=== PATIENT | male | born 1995 ===

== ENCOUNTER 2020-08-01 12:17 | Outpatient (REF) | payer OTHER, SELFPAY ==
[2020-08-01 13:51] LABS: TSH reflex Free T4 0.36 mIU/mL (0.32-4.0)
[2020-08-01 13:53] LABS: Alanine Aminotransferase 31 U/L (0-40); Albumin Level 4.5 g/dL (3.5-5.0); Alkaline Phosphatase 77 U/L (39-117); Anion Gap 11 (12-20); Aspartate Amino Transferase 31 U/L (5-37); Bilirubin Total 0.3 mg/dL (0.0-1.0); Blood Urea Nitrogen 27 mg/dL (9-16); Calcium 8.6 mg/dL (8.4-10.2); Carbon Dioxide 27 mmol/L (22-29); Chloride 104 mmol/L (96-108); Estimated Glomerular Filt Rate > 60; Glucose Fasting 83 mg/dL (60-99); Potassium 4.3 mmol/l (3.3-5.1); Sodium 138 mmol/L (135-145); Total Protein 7.5 g/dL (6.5-8.0)
[2020-08-01 17:57] LABS: Estimated Average Glucose 103 mg/dL; Hemoglobin A1c % 5.2 %
[2020-08-02 04:01] LABS: Syphilis Screen Nonreactive (Nonreactive)
[2020-08-02 04:32] LABS: HBS Num1 0.94 mIU/mL (0-7.99); HBc Num1 0.05 S/CO (0.00-0.79); Hepatitis B Core Antibody Nonreactive (Nonreactive); ~HepC Num1 0.08 S/CO (0.00-0.79); ~Hepatitis B Surface Antibody NONREACTIVE (Nonreactive); ~Hepatitis C Antibody Nonreactive (Nonreactive)
[2020-08-02 04:37] LABS: HIV AB/AG Nonreactive (Nonreactive); HIV Num 1 0.13 S/CO (0.00-0.99); Hepatitis B Surface Antigen Negative (Negative)
== END 2020-08-01 12:18 | disposition home or self-care (01) ==
LOC: HO.LAB 12:17
PROVIDERS: Visit Provider Physician Assistant
DX: Z13.1 Encounter for screening for diabetes mellitus (principal); Z11.3 Encounter for screening for infections with a predominantly sexual mode of transmission; Z13.29 Encounter for screening for other suspected endocrine disorder
CPT/HCPCS: 80053; 83036; 84443; 86704; 86706; 86780; 86803; 87340; 87389

== ENCOUNTER 2020-12-27 10:27 | Outpatient (REF) | payer OTHER, SELFPAY ==
[2020-12-27 12:10] LABS: HBsAGNum1 0.19 S/CO (0.00-0.99); HIV AB/AG Nonreactive (Nonreactive); HIV Num 1 0.06 S/CO (0.00-0.99); Hepatitis B Surface Antigen Negative (Negative)
[2020-12-27 12:21] LABS: Syphilis Screen Nonreactive (Nonreactive)
[2020-12-27 12:22] LABS: HBS Num1 0.44 mIU/mL (0-7.99); HBc Num1 0.06 S/CO (0.00-0.79); Hepatitis A Antibody IgM 0.12 Index (0-0.79); Hepatitis B Core Antibody Nonreactive (Nonreactive); ~HepC Num1 0.17 S/CO (0.00-0.79); ~Hepatitis A Antibody IgM Nonreactive (Nonreactive); ~Hepatitis B Surface Antibody NONREACTIVE (Nonreactive); ~Hepatitis C Antibody Nonreactive (Nonreactive)
[2020-12-28 04:06] LABS: CT PCR NOT DETECTED (Not Detect.); NG PCR NOT DETECTED (Not Detect.)
[2021-01-03 14:16] LABS: HSV 1 IgM IFA Negative (Negative); HSV 2 IgM IFA Negative (Negative)
== END 2020-12-27 10:28 | disposition home or self-care (01) ==
LOC: HO.HMGCLDS 10:27
PROVIDERS: PCP Physician Assistant; Visit Provider Hospitalist
DX: Z11.3 Encounter for screening for infections with a predominantly sexual mode of transmission (principal)
CPT/HCPCS: 36415; 86695; 86696; 86704; 86706; 86709; 86780; 86803; 87340; 87389; 87491; 87591

== ENCOUNTER 2021-03-14 12:33 | Outpatient (REF) | payer OTHER, SELFPAY ==
[2021-03-14 13:50] LABS: Hematocrit 42.8 % (42-52); Hemoglobin 13.7 g/dl (14.0-18.0); Mean Corpuscular Hemoglobin 25.7 pg (27.0-33.0); Mean Corpuscular Volume 80.1 fL (80-98); Mean Platelet Volume 10.8 fL (9.4-12.4); Platelet Count 187 X10*3/uL (160-400); Red Blood Count 5.34 X10*6/uL (4.60-5.80); Red Cell Distribution Width 13.3 % (11.0-16.0); White Blood Count 6.9 X10*3/uL (4.8-10.8)
[2021-03-14 14:05] LABS: Alanine Aminotransferase 20 U/L (0-40); Albumin Level 4.8 g/dL (3.5-5.0); Alkaline Phosphatase 68 U/L (39-117); Anion Gap 11 (12-20); Aspartate Amino Transferase 18 U/L (5-37); Bilirubin Direct 0.3 mg/dL (0.0-0.5); Blood Urea Nitrogen 13 mg/dL (9-16); Calcium 10.1 mg/dL (8.4-10.2); Carbon Dioxide 28 mmol/L (22-29); Chloride 104 mmol/L (96-108); Estimated Glomerular Filt Rate > 60; Glucose Random 99 mg/dL (60-115); Potassium 4.4 mmol/L (3.3-5.1); Sodium 139 mmol/L (135-145); Total Protein 7.8 g/dL (6.5-8.0)
[2021-03-14 14:41] LABS: Erythrocyte Sedimentation Rate 4 MM/HR (0-15)
== END 2021-03-14 12:34 | disposition home or self-care (01) ==
LOC: HO.LAB 12:33
PROVIDERS: PCP Physician Assistant; Visit Provider Physician Assistant
DX: I10 Essential (primary) hypertension (principal); Z87.39 Personal history of other diseases of the musculoskeletal system and connective tissue
CPT/HCPCS: 36415; 80048; 80076; 82550; 85027; 85652

== ENCOUNTER 2021-08-24 16:55 | Emergency (ER) | payer OTHER, SELFPAY ==
[2021-08-24 19:48] VITALS: BP 126/74; PULSE 60; RESP 18; TEMP 36.4; O2SAT 97; BMI 24.7
--- NOTE | 2021-08-24 19:58 | ED.MALEGU ---
HPI - Male Genitourinary General Chief complaint: Urogenital-Male Stated complaint: STD check Source: patient Mode of arrival: ambulatory Limitations: no limitations History of Present Illness HPI Narrative: 25-year-old male presents with penile discharge with suspected sexual transmitted infection. MD Complaint: penile discharge Onset (ago): day(s) (4) Duration: intermittent Location: penis Severity: moderate Severity scale (1-10): 5 Quality: burning Relieving factors: none Exacerbating factors: urination Context: new sexual partner Associated symptoms: Reports discharge Related Data Sexually active: Yes Previous Rx's Medication Instructions Recorded sildenafil 50 mg tablet 50 mg PO DAILY PRN 4 Days #4 tab 06/10/21 Allergies Allergy/AdvReac Type Severity Reaction Status Date / Time pollen extracts [POLLEN] Allergy Unknown UNKNOWN Verified 08/24/21 19:47 Review of Systems Review of Systems: Constitutional: No Fever, No Chills ENT/Mouth: No Ear Pain, No Hoarseness, No sore throat Eyes: No Eye Pain, No Swelling, No Redness, No Foreign Body Cardiovascular: No Chest Pain, No SOB Respiratory: No Cough, No Dyspnea Gastrointestinal: No Nausea, No Vomiting, No Diarrhea, No abdominal Pain Genitourinary: Positive penile discharge, No Dysuria, No Hematuria Musculoskeletal: no joint pain, No Myalgias, No Joint Swelling Skin: No Skin lacerations, No rash Neuro: No Weakness, No Numbness, No Paresthesias, No Loss of Consciousness, No Dizziness, No Headache Psych: No Anxiety/Panic, No Depression Heme/Lymph: no easy bruising, no Lymphadenopathy Endocrine: No Polyuria, No Polydipsia Yes all other systems are reviewed and are negative [facility] Past Medical History Attestation statement: The following information was validated with the patient. Source: old records reviewed Medical History MDD (major depressive disorder), recurrent episode, moderate Surgical History No history of previous surgery Family History Family History Father No problems noted. Mother Asthma Breast cancer Substance abuse Other Mental problem Social History Social History Housing: Apartment Alcohol intake: current Alcohol intake frequency: holidays/special occasions only Alcohol type: wine Patient Tobacco Use Status: Former Tobacco user e-Cigarette/Vaping Use: Never Used Second Hand Smoke Exposure: Yes Substance Use Type: Hallucinogens and Marijuana Advance Directives: No service: No Current occupational status: unemployed Physical Exam Vital Signs: Vital Signs: Last Vital Signs Temp 97.5 F 08/24/21 19:48 Pulse 60 08/24/21 19:48 Resp 18 08/24/21 19:48 BP 126/74 08/24/21 19:48 Pulse Ox 97 08/24/21 19:48 Body Mass Index 24.7 Appearance: Alert. Oriented X3. No acute distress. Eyes: Pupils equal, round and reactive to light. ENT: Pharynx normal. Neck: Normal inspection. Neck supple. CVS: Normal heart rate and rhythm. Pulses normal. Respiratory: No respiratory distress. Breath sounds normal. Abdomen: Soft and nontender. : Pearly penile discharge noted, no testicular pain or tenderness noted. Skin: Skin warm and dry. Normal skin color. Normal skin turgor. Extremities: No inguinal adenopathy. Moves all extremities against resistance. Gait Well-balanced well coordinated. Neuro: No motor deficit. No sensory deficit. Cranial nerves 2-12 intact. Course Course Course Narrative: 25-year-old male presents with penile discharge after new partner. Denies testicular pain and hematuria will treat with azithromycin and ceftriaxone. Patient will notify partners. Patient verbalized understanding of and agrees plan of care discharge home. MDM - Male Genitourinary MDM Narrative Medical decision making narrative: Chlamydia, gonorrhea Differential Diagnosis Differential diagnosis: Likely urinary tract infection, urethritis and epididymitis Medical Records Attestation: I reviewed the patient's medical records. Lab Data Attestation: I reviewed the patient's lab results. Labs: Lab Results 08/24/21 Range/Units 20:12 Urine Color YELLOW Urine Appearance CLEAR Urine pH 6.0 (5.0-8.0) Ur Specific [place] >= 1.030 H (1.005-1.025) Urine Protein NEG (NEG-TRACE) MG/DL Urine Glucose (UA) NEG (NEG) MG/DL Urine Ketones NEG (NEG) MG/DL Urine Blood NEG (NEG) Urine Nitrite NEG (NEG) Ur Leukocyte Esterase NEG (NEG) Discharge Plan Discharge Clinical Impression: Sexually transmitted disease Patient Disposition: Home, Self-Care Instructions: Sexually Transmitted Diseases (ED), Male Condom Use (ED) Additional Instructions: we treated you for chlamydia and gonorrhea. Please notify Your partners. Your test results are pending. Thank you for choosing this emergency department for evaluation. Please follow-up with primary care physician as needed. Return to the emergency department for any new, concerning, or worsening symptoms. Prescriptions: No Action sildenafil 50 mg tablet 50 mg PO DAILY PRN (Reason: sexual activity) 4 Days Qty: 4 RF: 0 Interventions: ED Discharge Assessment Last Done: 08/24/21 20:51 Discharge Date/Time: 08/24/21 20:53
[2021-08-24 20:28] LABS: Appearance Urine CLEAR; Color Urine YELLOW; Glucose Urine UA NEG (NEG); Leukocyte Esterase Urine NEG (NEG); Nitrite Urine NEG (NEG); Specific Gravity - Urine >= 1.030 (1.005-1.025); Urine Blood NEG (NEG); Urine Ketones NEG (NEG); Urine Protein NEG (NEG-TRACE)
[2021-08-24] MEDS: cefTRIAXone sodium 500 MG, Lidocaine HCl 1 % MPF 1 ML IM (20:47)
[2021-08-24] MEDS: Azithromycin 500 MG TABLET 1000 MG PO (20:47)
[2021-08-25 00:54] LABS: CT PCR NOT DETECTED (Not Detect.); NG PCR DETECTED (Not Detect.)
== END 2021-08-24 20:53 | disposition home or self-care (01) ==
PROVIDERS: Nurse Practitioner Family; Emergency Provider Internal Medicine; PCP Physician Assistant
DX: A54.09 Other gonococcal infection of lower genitourinary tract (principal)
CPT/HCPCS: 81003; 87491; 87591; 96372; 99283; 99284; J0696

== ENCOUNTER 2021-09-05 04:51 | Emergency (ER) | payer OTHER, SELFPAY ==
[2021-09-05 04:53] VITALS: BP 117/68; PULSE 84; RESP 18; TEMP 36.5; O2SAT 98; BMI 24.2
[2021-09-05 06:18] VITALS: BP 102/52; PULSE 55; RESP 18; TEMP 36.6; O2SAT 96
--- NOTE | 2021-09-05 06:47 | ED.MALEGU ---
HPI - Male Genitourinary General Chief complaint: Urogenital-Male Stated complaint: uro genital male Time Seen by Provider: 09/05/21 05:00 Source: patient Mode of arrival: ambulatory History of Present Illness HPI Narrative: 25-year-old male who was diagnosed with gonorrhea infection on 08/24 and appropriately treated now presents with concerns regarding feeling similar symptoms with burning and itching at the tip of his penis. He denies any scrotal/testicular pain, fevers or chills. Patient states that he has had protected sex on 09/02/2012. Related Data Previous Rx's Medication Instructions Recorded sildenafil 50 mg tablet 50 mg PO DAILY PRN 4 Days #4 tab 06/10/21 Allergies Allergy/AdvReac Type Severity Reaction Status Date / Time pollen extracts [POLLEN] Allergy Unknown UNKNOWN Verified 08/24/21 19:47 Review of Systems Review of Systems: Pertinent positives and negatives as stated in HPI 10 point review of systems is otherwise negative. PMFSH Past Medical History Source: nursing notes reviewed Medical History MDD (major depressive disorder), recurrent episode, moderate Surgical History No history of previous surgery Family History Family History Father No problems noted. Mother Asthma Breast cancer Substance abuse Other Mental problem Social History Social History Housing: Apartment Alcohol intake: current Alcohol intake frequency: holidays/special occasions only Alcohol type: wine Patient Tobacco Use Status: Former Tobacco user e-Cigarette/Vaping Use: Never Used Second Hand Smoke Exposure: Yes Substance Use Type: Hallucinogens and Marijuana Advance Directives: No Advance Directives Information Provided: Yes service: No Current occupational status: unemployed Physical Exam Vital Signs: Vital Signs: Last Vital Signs Temp 97.9 F 09/05/21 06:18 Pulse 55 09/05/21 06:18 Resp 18 09/05/21 06:18 BP 102/52 L 09/05/21 06:18 Pulse Ox 96 09/05/21 06:18 BMI result Body Mass Index 24.2 VITAL SIGNS: Reviewed. GENERAL: Well developed, well nourished, in no acute distress. HEAD: Normocephalic/atraumatic EYES: PERRLA, EOMI OROPHARYNX: no oral lesions noted, posterior pharynx clear LUNGS: Normal breath sounds.SpO2<96> CARDIOVASCULAR: Regular rate and rhythm without noted murmurs ABDOMEN: Soft, non-tender, non-distended with bowel sounds NEUROLOGIC: Alert and oriented x 4 Course Course Course Narrative: 25-year-old male with history and clinical presentation suggestive of either failure of treatment or over thinking this situation. Repeat STI analysis is pending and the plan would be that if he is positive again that he would be treated once again with Rocephin [address] S[address] out to [address] Zuluaga Discharge Plan Discharge Clinical Impression: Dysuria Patient Disposition: Still a Patient Instructions: Dysuria (ED) Prescriptions: No Action sildenafil 50 mg tablet 50 mg PO DAILY PRN (Reason: sexual activity) 4 Days Qty: 4 RF: 0 Referrals: Kolton Tang PA-C [Primary Care Provider] - 2 days
[2021-09-05 08:10] LABS: CT PCR NOT DETECTED (Not Detect.); NG PCR NOT DETECTED (Not Detect.)
--- NOTE | 2021-09-05 08:23 | ED.MALEGU ---
HPI - Male Genitourinary General Chief complaint: Urogenital-Male Stated complaint: uro genital male Time Seen by Provider: 09/05/21 05:00 Source: patient Mode of arrival: ambulatory Related Data Previous Rx's Medication Instructions Recorded sildenafil 50 mg tablet 50 mg PO DAILY PRN 4 Days #4 tab 06/10/21 ondansetron HCl 4 mg tablet 4 mg PO Q6H PRN #10 tab 09/09/21 (Zofran) Allergies Allergy/AdvReac Type Severity Reaction Status Date / Time pollen extracts [POLLEN] Allergy Unknown UNKNOWN Verified 10/11/21 14:26 [facility] Past Medical History Medical History MDD (major depressive disorder), recurrent episode, moderate Surgical History No history of previous surgery Family History Family History Father No problems noted. Mother Asthma Breast cancer Substance abuse Other Mental problem Social History Social History Housing: Apartment Alcohol intake: current Alcohol intake frequency: holidays/special occasions only Alcohol type: wine Patient Tobacco Use Status: Former Tobacco user e-Cigarette/Vaping Use: Never Used Second Hand Smoke Exposure: Yes Substance Use Type: Hallucinogens and Marijuana Advance Directives: No Advance Directives Information Provided: No service: No Current occupational status: unemployed Physical Exam Vital Signs: Vital Signs: Last Vital Signs Temp 97.9 F 09/05/21 06:18 Pulse 55 09/05/21 06:18 Resp 18 09/05/21 06:18 BP 102/52 L 09/05/21 06:18 Pulse Ox 96 09/05/21 06:18 BMI result Body Mass Index 24.2 MDM - Male Genitourinary Lab Data Labs: Lab Results 09/05/21 Range/Units 06:24 Chlam trachomat DNA PCR NOT DETECTED (Not Detect.) N.gonorrhoeae DNA (PCR) NOT DETECTED (Not Detect.) Discharge Plan Discharge Clinical Impression: Dysuria Patient Disposition: Still a Patient Instructions: Dysuria (ED) Prescriptions: No Action ondansetron HCl [Zofran] 4 mg tablet 4 mg PO Q6H PRN (Reason: nausea and vomiting) Qty: 10 RF: 0 sildenafil 50 mg tablet 50 mg PO DAILY PRN (Reason: sexual activity) 4 Days Qty: 4 RF: 0 Referrals: Kolton Tang PA-C [Primary Care Provider] - 2 days Interventions: ED Discharge Assessment Last Done: 09/05/21 08:20 Discharge Date/Time: 09/05/21 08:20
== END 2021-09-05 08:20 | disposition still patient (30) ==
PROVIDERS: Student in an Organized Health Care Education/Training Program; Emergency Provider Emergency Medicine; PCP Physician Assistant
DX: R30.0 Dysuria (principal); A54.9 Gonococcal infection, unspecified; Z87.891 Personal history of nicotine dependence; Z79.899 Other long term (current) drug therapy
CPT/HCPCS: 87491; 87591; 99283; 99284

== ENCOUNTER 2021-09-09 10:52 | Emergency (ER) | payer OTHER, SELFPAY ==
[2021-09-09 11:29] VITALS: BP 106/71; PULSE 55; RESP 18; TEMP 36.6; O2SAT 98; BMI 24.2
[2021-09-09 14:28] LABS: MANUAL DIFF FLAG NO
[2021-09-09 14:31] LABS: Basophils Absolute Auto 0.1 X10*3/uL (0.0-0.2); Basophils Percent Auto 0.6 % (0-2); Eosinophils Absolute Auto 0.1 X10*3/uL (0.0-0.4); Eosinophils Percent Auto 1.7 % (0-4); Hemoglobin 14.7 g/dl (14.0-18.0); Imm Gran Abs Auto 0.02 X10*3/uL (0.00-0.03); Imm Gran Pct Auto 0.2 % (0.0-0.4); Lymphocytes Absolute Auto 1.7 X10*3/uL (1.2-4.9); Lymphocytes Percent Auto 19.8 % (20-40); Mean Corpuscular Volume 81.4 fL (80.0-98.0); Mean Platelet Volume 10.4 fL (9.4-12.4); Monocytes Absolute Auto 0.5 X10*3/uL (0.1-1.2); Neutrophils Absolute Auto 6.1 x10*3/uL (2.0-8.3); Neutrophils Percent Auto 71.7 % (45-73); Platelet Count 201 X10*3/uL (160-400); Red Blood Count 5.65 X10*6/uL (4.60-5.80); Red Cell Distribution Width 13.1 % (11.0-16.0); White Blood Count 8.5 X10*3/uL (4.8-10.8)
[2021-09-09 14:44] LABS: Ethanol < 10 mg/dL
[2021-09-09 14:58] LABS: Alanine Aminotransferase 23 U/L (0-40); Albumin Level 4.6 g/dL (3.5-5.0); Alkaline Phosphatase 60 U/L (39-117); Anion Gap 15 (12-20); Aspartate Amino Transferase 30 U/L (5-37); Bilirubin Direct 0.2 mg/dL (0.0-0.5); Bilirubin Total 0.5 mg/dL (0.0-1.0); Blood Urea Nitrogen 12 mg/dL (9-16); Calcium 9.8 mg/dL (8.4-10.2); Carbon Dioxide 20 mmol/L (22-29); Chloride 106 mmol/L (96-108); Creatinine Clr Calc Pharmacy 107.6; Estimated Glomerular Filt Rate > 60; Glucose Random 92 mg/dL (60-115); Lipase 9 U/L (8-78); Potassium 4.1 mmol/L (3.3-5.1); Sodium 137 mmol/L (135-145); Total Protein 7.7 g/dL (6.5-8.0)
--- NOTE | 2021-09-09 15:43 | ED.GENADULT ---
HPI - General Adult General Chief complaint: ETOH/Substance Use Stated complaint: Vomiting Time Seen by Provider: 09/09/21 15:18 Source: patient Mode of arrival: ambulatory Limitations: no limitations History of Present Illness HPI narrative: Patient comes to the emergency room complaining of nausea and feeling hung over after drinking alcohol. Patient denies abdominal pain, just some gastric burning. Patient states that he has been and occasionally vomiting, states that he drank a lot of alcohol over the weekend. At this time, patient only feeling nauseous, no vomiting, no diarrhea, no abdominal pain. Related Data Previous Rx's Medication Instructions Recorded sildenafil 50 mg tablet 50 mg PO DAILY PRN 4 Days #4 tab 06/10/21 ondansetron HCl 4 mg tablet 4 mg PO Q6H PRN #10 tab 09/09/21 (Zofran) Allergies Allergy/AdvReac Type Severity Reaction Status Date / Time pollen extracts [POLLEN] Allergy Unknown UNKNOWN Verified 08/24/21 19:47 Review of Systems Review of Systems: Constitutional : No Weight loss, No Fever, No Chills, No Night Sweats, No Fatigue, No Malaise ENT/Mouth : No Hearing loss, No Ear Pain, No Nasal Congestion, No Sinus Pain, No Hoarseness, No sore throat, No Rhinorrhea, No Swallowing Difficulty Eyes: No Eye Pain, No Swelling, No Redness, No Foreign Body, No Discharge, No Vision Changes Cardiovascular : No Chest Pain, No SOB, No Dyspnea on Exertion, No Orthopnea, No Edema, No Palpitations Respiratory : No Cough, No Sputum, No Wheezing, No Smoke Exposure, No Dyspnea Gastrointestinal : Complaining of nausea and vomiting No Diarrhea, No Constipation, No abdominal Pain, No Hematochezia, No Melena Genitourinary : no irregular bleeding, No Dysuria, No Urinary Frequency, No Hematuria, No Urinary Incontinence, No Urgency, No Flank Pain, No Urinary Flow Changes, No Hesitancy Musculoskeletal : No joint pain, No Myalgias, No Joint Swelling Skin : No Skin Lesions, No rash Neuro : No Weakness, No Numbness, No Paresthesias, No Loss of Consciousness, No Dizziness, No Headache Psych : No Anxiety/Panic, No Depression, No SI/HI/AH/VH, No Social Issues, Heme/Lymph: No Bruising, No Bleeding,No Lymphadenopathy Endocrine : No Polyuria, No Polydipsia, No Temperature Intolerance PMFSH Past Medical History Medical History MDD (major depressive disorder), recurrent episode, moderate Surgical History No history of previous surgery Family History Family History Father No problems noted. Mother Asthma Breast cancer Substance abuse Other Mental problem Social History Social History Housing: Apartment Alcohol intake: current Alcohol intake frequency: holidays/special occasions only Alcohol type: wine Patient Tobacco Use Status: Former Tobacco user e-Cigarette/Vaping Use: Never Used Second Hand Smoke Exposure: Yes Substance Use Type: Hallucinogens and Marijuana Advance Directives: No Advance Directives Information Provided: No service: No Current occupational status: unemployed Physical Exam Vital Signs: Vital Signs: Last Vital Signs Temp 97.8 F 09/09/21 11:29 Pulse 55 09/09/21 11:29 Resp 18 09/09/21 11:29 BP 106/71 09/09/21 11:29 Pulse Ox 98 09/09/21 11:29 BMI result Body Mass Index 24.2 Const: Other: Appearance: Alert. Oriented X3. No acute distress. Well-appearing Eyes: Pupils equal, round and reactive to light. ENT: Pharynx normal. Neck: Normal inspection. Neck supple. No lymph nodes noted. No crepitus CVS: Normal heart rate and rhythm. Pulses normal. Normal S1 and S2 Respiratory: No respiratory distress. Breath sounds normal. No Wheezing. No rales Abdomen: Soft and nontender. No rigidity. No distention. Skin: Skin warm and dry. Normal skin color. Normal skin turgor. Extremities: No lower extremity edema. No Lacerations. No Rash Neuro: Oriented X 3. No motor deficit. No sensory deficit. Moving all extermities. No slurred speech. Course Course Course Narrative: Patient is well-appearing, patient was given p.o. Zofran and Pepcid. Patient's labs do not show any acute pathology, patient otherwise feeling well. Medical Decision Making Lab Data Result diagrams: 09/09/21 14:24 09/09/21 14:24 Labs: Lab Results 09/09/21 09/09/21 09/09/21 Range/Units 14:24 14:24 14:24 WBC 8.5 (4.8-10.8) X10*3/uL RBC 5.65 (4.60-5.80) X10*6/uL Hgb 14.7 (14.0-18.0) g/dl Hct 46.0 (42.0-52.0) % MCV 81.4 (80.0-98.0) fL MCH 26.0 L (27.0-33.0) pg MCHC 32.0 (31.0-36.0) g/dl RDW 13.1 (11.0-16.0) % Plt Count 201 (160-400) X10*3/uL MPV 10.4 (9.4-12.4) fL Immature Gran % (Auto) 0.2 (0.0-0.4) % Neut % (Auto) 71.7 (45-73) % Lymph % (Auto) 19.8 L (20-40) % [place] % (Auto) 6.0 (2-11) % Eos % (Auto) 1.7 (0-4) % Baso % (Auto) 0.6 (0-2) % Lymph # (Auto) 1.7 (1.2-4.9) X10*3/uL [place] # (Auto) 0.5 (0.1-1.2) X10*3/uL Eos # (Auto) 0.1 (0.0-0.4) X10*3/uL Baso # (Auto) 0.1 (0.0-0.2) X10*3/uL Abs Immat Gran (auto) 0.02 (0.00-0.03) X10*3/uL Absolute Neuts (auto) 6.1 (2.0-8.3) x10*3/uL Absolute Nucleated RBC 0.000 (0.0-0.012) X10*3/uL Nucleated RBC % (auto) 0.0 (0.0-0.2) /100WBC Sodium 137 (135-145) mmol/L Potassium 4.1 (3.3-5.1) mmol/L Chloride 106 (96-108) mmol/L Carbon Dioxide 20 L (22-29) mmol/L Anion Gap 15 (12-20) BUN 12 (9-16) mg/dL Creatinine 0.93 (0.5-1.4) mg/dL Estim Creat Clear Calc 107.6 Estimated GFR > 60 Random Glucose 92 (60-115) mg/dL Calcium 9.8 (8.4-10.2) mg/dL Total Bilirubin 0.5 (0.0-1.0) mg/dL Direct Bilirubin 0.2 (0.0-0.5) mg/dL AST 30 D (5-37) U/L ALT 23 (0-40) U/L Alkaline Phosphatase 60 (39-117) U/L Total Protein 7.7 (6.5-8.0) g/dL Albumin 4.6 (3.5-5.0) g/dL Lipase 9 (8-78) U/L Ethyl Alcohol < 10 mg/dL Discharge Plan Discharge Clinical Impression: Vomiting Patient Disposition: Home, Self-Care Instructions: Acute Nausea and Vomiting (ED) Additional Instructions: Please follow-up with your primary care physician tomorrow. If you have any worsening or new symptoms, please return to the emergency room or call 911 Prescriptions: New ondansetron HCl [Zofran] 4 mg tablet 4 mg PO Q6H PRN (Reason: nausea and vomiting) Qty: 10 RF: 0 No Action sildenafil 50 mg tablet 50 mg PO DAILY PRN (Reason: sexual activity) 4 Days Qty: 4 RF: 0 Stand Alone Forms: Work/School Release
[2021-09-09] MEDS: Famotidine 20 MG TABLET PO (15:59)
[2021-09-09] MEDS: Ondansetron ODT 4 MG TAB.RAPDIS TRANSLINGU (15:59)
[2021-09-09 16:01] VITALS: BP 110/71; PULSE 60; RESP 18; O2SAT 98
[2021-09-09 16:24] LABS: Appearance Urine CLEAR; Color Urine YELLOW; Glucose Urine UA NEG (NEG); Leukocyte Esterase Urine NEG (NEG); Nitrite Urine NEG (NEG); PH 6.5 (5.0-8.0); Urine Blood NEG (NEG); Urine Ketones NEG (NEG); Urine Protein TRACE MG/DL (NEG-TRACE)
== END 2021-09-09 16:04 | disposition home or self-care (01) ==
PROVIDERS: Emergency Provider Emergency Medicine; PCP Physician Assistant
DX: R11.2 Nausea with vomiting, unspecified (principal)
CPT/HCPCS: 36415; 80048; 80076; 81003; 82077; 83690; 85025; 99283; 99284

== ENCOUNTER 2021-09-29 13:35 | Outpatient (REF) | payer OTHER, SELFPAY | END 2021-09-29 13:36 | disposition home or self-care (01) | LOC: HO.HMGCLDS 13:35 | PROVIDERS: Visit Provider Internal Medicine | DX: Z20.822 Contact with and (suspected) exposure to COVID-19 (principal) | CPT/HCPCS: C9803; U0003; U0005 ==

== ENCOUNTER 2021-10-07 11:20 | Emergency (ER) | payer OTHER, SELFPAY ==
[2021-10-07 12:49] VITALS: BP 136/87; PULSE 73; RESP 18; TEMP 36.6; O2SAT 100; BMI 24.2
[2021-10-07 13:54] LABS: Influenza A PCR NEGATIVE (Negative); Influenza B PCR NEGATIVE (Negative); Resp Syncy Virus RNA Qual PCR NEGATIVE (Negative); SARS COV2 PCR INHOUSE POSITIVE (Negative)
--- NOTE | 2021-10-07 14:26 | ED.GENADULT ---
HPI - General Adult General Chief complaint: Upper Respiratory Symptoms Stated complaint: body aches headache fever Time Seen by Provider: 10/07/21 14:26 Source: patient Mode of arrival: ambulatory Limitations: no limitations History of Present Illness HPI narrative: 25 y/o male with history of schizophrenia, depression presents to the ER for evaluation and wanting a COVID test. He reports ?feeling like sh*t and would not elaborate. Related Data Previous Rx's Medication Instructions Recorded sildenafil 50 mg tablet 50 mg PO DAILY PRN 4 Days #4 tab 06/10/21 ondansetron HCl 4 mg tablet 4 mg PO Q6H PRN #10 tab 09/09/21 (Zofran) Allergies Allergy/AdvReac Type Severity Reaction Status Date / Time pollen extracts [POLLEN] Allergy Unknown UNKNOWN Verified 09/29/21 07:13 [facility] Past Medical History Medical History MDD (major depressive disorder), recurrent episode, moderate Surgical History No history of previous surgery Family History Family History Father No problems noted. Mother Asthma Breast cancer Substance abuse Other Mental problem Social History Social History Housing: Apartment Alcohol intake: current Alcohol intake frequency: holidays/special occasions only Alcohol type: wine Patient Tobacco Use Status: Former Tobacco user e-Cigarette/Vaping Use: Never Used Second Hand Smoke Exposure: Yes Substance Use Type: Hallucinogens and Marijuana service: No Current occupational status: unemployed Physical Exam Vital Signs: Vital Signs: Last Vital Signs Temp 97.9 F 10/07/21 12:49 Pulse 73 10/07/21 12:49 Resp 18 10/07/21 12:49 BP 136/87 10/07/21 12:49 Pulse Ox 100 10/07/21 12:49 BMI result Body Mass Index 24.2 Medical Decision Making Lab Data Labs: Lab Results 10/07/21 Range/Units 13:05 Influenza Type A (PCR) NEGATIVE (Negative) Influenza Type B (PCR) NEGATIVE (Negative) RSV RNA Qual (PCR) NEGATIVE (Negative) SARS-CoV-2 RNA (RT-PCR) POSITIVE A (Negative) Discharge Plan Discharge Clinical Impression: COVID-19 Patient Disposition: Home, Self-Care Instructions: Covid-19 Viral Syndrome and Novel Coronavirus (ED) Hey/Ath Additional Instructions: You were found to be COVID-19 POSITIVE today. Your exam and oxygen levels were normal. Rest. Drink plenty of fluids. Do not go out in public for the next 7-10 days. Take over the counter cold/flu medications as needed for your symptoms. Take Tylenol and/or Motrin as needed for fevers and body aches. Follow up with your doctor this week. If you shortness of breath worsens, if you develop difficulty breathing or any other concerning symptom come back to the ER for further evaluation. Prescriptions: No Action ondansetron HCl [Zofran] 4 mg tablet 4 mg PO Q6H PRN (Reason: nausea and vomiting) Qty: 10 RF: 0 sildenafil 50 mg tablet 50 mg PO DAILY PRN (Reason: sexual activity) 4 Days Qty: 4 RF: 0
== END 2021-10-07 19:00 | disposition left against medical advice (07) ==
PROVIDERS: Emergency Provider Emergency Medicine
DX: M79.10 Myalgia, unspecified site (principal); R51.9 Headache, unspecified; R50.9 Fever, unspecified; Z20.822 Contact with and (suspected) exposure to COVID-19
CPT/HCPCS: 0241U; 99282; 99283

== ENCOUNTER 2021-10-11 14:21 | Emergency (ER) | payer OTHER, SELFPAY ==
[2021-10-11 14:27] VITALS: BP 130/81; PULSE 96; RESP 18; TEMP 36.6; O2SAT 99; BMI 24.2
--- NOTE | 2021-10-11 17:53 | ED.GENADULT ---
HPI - General Adult General Chief complaint: General Medical Stated complaint: STD screen Time Seen by Provider: 10/11/21 17:53 Source: patient Mode of arrival: ambulatory Limitations: no limitations History of Present Illness HPI narrative: 25-year-old male presents to the emergency department requesting to get STD tested. He does not elaborate on why he wants testing however he does tell me he has multiple sexual partners and he does not use protection. He tells me it just feels off down there , and last time that this happened to him he ended up having an STD. He vaguely mentions that from time to time he feels and itching/taking tip of his penis and sometimes in his scrotum. Denies testicular pain, denies penile discharge, painful urination, urinary frequency/urgency, dysuria, fevers, chills, nausea, vomiting, abdominal pain, back pain, chest pain, shortness of breath. Relieving factors: none Exacerbating factors: none Associated symptoms: denies other symptoms Treatments prior to arrival: none Related Data Previous Rx's Medication Instructions Recorded sildenafil 50 mg tablet 50 mg PO DAILY PRN 4 Days #4 tab 06/10/21 ondansetron HCl 4 mg tablet 4 mg PO Q6H PRN #10 tab 09/09/21 (Zofran) doxycycline hyclate 100 mg capsule 100 mg PO BID 10 Days #20 cap 10/11/21 metronidazole 500 mg tablet 500 mg PO BID 7 Days #14 tab 10/11/21 Allergies Allergy/AdvReac Type Severity Reaction Status Date / Time pollen extracts [POLLEN] Allergy Unknown UNKNOWN Verified 10/11/21 14:26 Review of Systems Review of Systems: Constitutional : No Fever, No Chills ENT/Mouth : No sore throat, No Rhinorrhea Eyes: No Eye Pain, No Swelling, No Redness Cardiovascular : No Chest Pain, No SOB Respiratory : No Cough, No Sputum Gastrointestinal : No Nausea, No Vomiting, No Diarrhea, No abdominal Pain Genitourinary : No Dysuria, No Hematuria, No penile discharge Musculoskeletal : No joint pain, No Myalgias, No Joint Swelling Skin : No Skin Lesions, No rash Neuro : No Weakness, No Numbness Psych : No Anxiety, No Depression, No SI/HI/AH/VH Heme/Lymph: No Bruising, No Bleeding Endocrine : No Polyuria, No Polydipsia All other systems reviewed and are negative Yes all other systems are reviewed and are negative REPLACED BY [facility] Past Medical History Attestation statement: The following information was validated with the patient. Source: old records reviewed and nursing notes reviewed Medical History MDD (major depressive disorder), recurrent episode, moderate Surgical History No history of previous surgery Family History Family History Father No problems noted. Mother Asthma Breast cancer Substance abuse Other Mental problem Social History Social History Housing: Apartment Alcohol intake: current Alcohol intake frequency: holidays/special occasions only Alcohol type: wine Patient Tobacco Use Status: Former Tobacco user e-Cigarette/Vaping Use: Never Used Second Hand Smoke Exposure: Yes Substance Use Type: Hallucinogens and Marijuana Advance Directives: No Advance Directives Information Provided: No service: No Current occupational status: unemployed Physical Exam Vital Signs: Vital Signs: Last Vital Signs Temp 98.4 F 10/11/21 17:59 Pulse 49 L 10/11/21 17:59 Resp 16 10/11/21 17:59 BP 152/72 H 10/11/21 17:59 Pulse Ox 100 10/11/21 17:59 BMI result Body Mass Index 24.2 Vital signs stable Appearance: Alert.? Oriented X3.? No acute distress.? Head: Normocephalic, atraumatic, no step-offs or deformities Eyes: Pupils equal, round and reactive to light.? ENT: Pharynx normal.? Neck: Normal inspection.? Neck supple.? CVS: Normal heart rate and rhythm.? Pulses normal.? Respiratory: No respiratory distress.? Breath sounds normal.? Abdomen: Soft and nontender.? Sensitive exam: Normal male penis, bilateral epididymis nontender, no overlying skin changes, no lumps or masses upon palpation of the scrotum. No evidence of orchitis or epididymitis. No penile discharge Skin: Skin warm and dry.? Normal skin color.? Normal skin turgor.? Extremities: No lower extremity edema.? No calf ttp. 5/5 strength to bilateral upper and lower extremities Neuro: Oriented X 3.? No motor deficit.? No sensory deficit. Course Reevaluation(s) Reevaluation #1: Patient gave us a urine, is been sent down for analysis. Educated patient, and informed him about [facility]. Has received Rocephin and doxycycline 1st dose here. I have sent doxycycline 100 mg p.o. b.i.d. times 10 days to his pharmacy to cover for chlamydia and I have also sent metronidazole to cover for Trichomonas. I have advised him to stay abstinent from any intercourse until he is asymptomatic and to return with new or worsening symptoms. I have also advised him to follow-up with his PCP. Patient understands and agrees with this plan. Time: 17:57 Medical Decision Making [facility] Narrative Medical decision making narrative: 1758 25 yo M presents for STD testing. He is not elaborating on whether not he had a potential exposure. He tells me does does not feel right. Last time he felt like this he had an STD. To note patient had a similar presentation here in July of last year, he tested positive for gonorrhea and was treated with azithromycin and ceftriaxone. Negative for chlamydia at that time. Physical exam benign History and physical examination not consistent with epididymitis, orchitis or testicular torsion. Plan at this time is to obtain gonorrhea and chlamydia by urine. Medical Records Medical records reviewed: Yes I reviewed the patient's medical records. Lab Data Lab results reviewed: Yes I reviewed the patient's lab results. Critical Care Time Critical Care Time Critical Care Time: No Discharge Plan Discharge Clinical Impression: Screening for STD (sexually transmitted disease) Patient Disposition: Home, Self-Care Instructions: Chlamydia (ED), Gonorrhea (ED), Trichomoniasis (ED) Additional Instructions: Take your medications as prescribed. If you were prescribed antibiotics today, it is important that you take your medication to their entirety, do not skip any doses, do not finish them early. Follow-up with your primary care provider this week. Follow up with [facility], this is a great resource with a can do full panel STD testing Please practice abstinence from sexual intercourse in if you are going to have it for any reason make sure you wear protection until this potential infection is cleared. He will be called only of results are positive. We were prophylactically treating you for gonorrhea, chlamydia and Trichomonas Return to the emergency department with new or worsening symptoms. In case of emergency call 911 Prescriptions: New doxycycline hyclate 100 mg capsule 100 mg PO BID 10 Days Qty: 20 RF: 0 metronidazole 500 mg tablet 500 mg PO BID 7 Days Qty: 14 RF: 0 No Action ondansetron HCl [Zofran] 4 mg tablet 4 mg PO Q6H PRN (Reason: nausea and vomiting) Qty: 10 RF: 0 sildenafil 50 mg tablet 50 mg PO DAILY PRN (Reason: sexual activity) 4 Days Qty: 4 RF: 0 Referrals: Physician,Unknown J [Primary Care Provider] - 2 days Stand Alone Forms: Work/School Release
[2021-10-11 17:59] VITALS: BP 152/72; PULSE 49; RESP 16; TEMP 36.9; O2SAT 100
[2021-10-11] MEDS: cefTRIAXone sodium 500 MG, Lidocaine HCl 1 % MPF 1 ML IM (18:10)
[2021-10-11 18:27] LABS: Appearance Urine CLEAR; Color Urine YELLOW; Glucose Urine UA NEG (NEG); Leukocyte Esterase Urine NEG (NEG); Nitrite Urine NEG (NEG); Specific Gravity - Urine 1.015 (1.005-1.025); Urine Blood NEG (NEG); Urine Ketones NEG (NEG); Urine Protein TRACE MG/DL (NEG-TRACE)
[2021-10-12 11:16] LABS: CT PCR NOT DETECTED (Not Detect.); NG PCR NOT DETECTED (Not Detect.)
== END 2021-10-11 18:36 | disposition home or self-care (01) ==
PROVIDERS: Emergency Provider Internal Medicine
DX: Z20.2 Contact with and (suspected) exposure to infections with a predominantly sexual mode of transmission (principal); F25.9 Schizoaffective disorder, unspecified
CPT/HCPCS: 81003; 87491; 87591; 96372; 99284; J0696

== ENCOUNTER 2022-03-26 11:18 | Emergency (ER) | payer OTHER, SELFPAY ==
[2022-03-26 11:46] VITALS: BP 121/70; PULSE 56; RESP 14; TEMP 36.6; O2SAT 99; BMI 24.2
--- NOTE | 2022-03-26 14:35 | ED_ITS ---
HPI - Male Genitourinary General Chief complaint: Urogenital-Male Stated complaint: sti tested Time Seen by Provider: 03/26/22 12:31 Source: patient Mode of arrival: ambulatory Limitations: no limitations History of Present Illness HPI Narrative: Patient is a 26 year old male presenting to the emergency department today with tip of penis and anal itching. Patient states that right after he had sex with an individual last week, he started to experience this itching. Patient denies any dizziness, lightheadedness, abdominal pain, nausea, vomiting, fever, chills, blurry vision, double vision, loss of vision, chest pain, difficulty breathing, shortness of breath, back pain, night sweats, pain with urination, increased urinary frequency, increased urinary urgency, blood in his urine or stool, penile discharge, syncope or a near syncopal episode, recent trauma or falls, bowel incontinence, bladder incontinence, bowel retention, bladder retention, or any other complaints at this time. MD Complaint: possible STD exposure Onset (ago): day(s) Duration: intermittent Location: penis Severity: mild Severity scale (1-10): 3 Relieving factors: none Exacerbating factors: none Associated symptoms: Reports denies other symptoms Related Data Sexually active: Yes Previous Rx's Medication Instructions Recorded sildenafil 50 mg tablet 50 mg PO DAILY PRN sexual activity 06/10/21 4 days #4 tabs ondansetron HCl 4 mg tablet 4 mg PO Q6H PRN nausea and 09/09/21 (Zofran) vomiting #10 tabs doxycycline hyclate 100 mg capsule 100 mg PO BID 10 days #20 caps 10/11/21 metronidazole 500 mg tablet 500 mg PO BID 7 days #14 tabs 10/11/21 albendazole 200 mg tablet 400 mg PO Q2W 2 doses #4 tabs 03/26/22 doxycycline hyclate 100 mg capsule 100 mg PO BID 7 days #14 caps 03/26/22 Allergies Allergy/AdvReac Type Severity Reaction Status Date / Time pollen extracts [POLLEN] Allergy Unknown UNKNOWN Verified 10/11/21 14:26 Review of Systems Constitutional: Constitutional: Reports no additional constitutional complaints, Denies chills, Denies fever(s) and Denies night sweats Eyes: Eyes: Reports no additional eye complaints, Denies blurry vision, Denies change in vision, Denies diplopia, Denies eye discharge, Denies loss of vision and Denies eye pain ENT: Denies dizziness Cardiovascular: Cardiovascular: Reports no additional cardiovascular complaints, Denies chest pain, Denies lightheadedness, Denies Loss of Conscious ness and Denies dyspnea Respiratory: Respiratory: Reports no additional respiratory complaints and Denies dyspnea Gastrointestinal: Gastrointestinal: Reports no additional gastrointestinal complaints, Denies abdominal pain, Denies melena, Denies hematochezia, Denies change in bowel habits and Denies change in stool character Comments: anal itching Genitourinary: Genitourinary: Reports no additional male genitourinary complaints, Denies hematuria, Denies oliguria, Denies difficulty urinating, Denies dysuria, Denies urinary frequency, Denies urinary hesitancy, Denies urinary incontinence and Denies urinary urgency Comments: penile itching Musculoskeletal: Musculoskeletal: Reports no additional musculoskeletal complaints, Denies numbness and Denies tingling Neurologic: Denies dizziness, Denies loss of vision, Denies numbness and Denies tingling Psychiatric: Psychiatric: Reports no additional psychiatric complaints Endocrine: Endocrine: Reports no additional endocrine complaints Hematologic/Lymphatic: Hematologic/Lymphatic: Reports no additional hematologic/lymphatic complaints Allergic/Immunologic: Allergic/Immunologic: Reports no additional allergic/immunologic complaints PMFSH Past Medical History Attestation statement: The following information was validated with the patient. Source: old records reviewed Medical History MDD (major depressive disorder), recurrent episode, moderate Surgical History No history of previous surgery Family History Family History Father No problems noted. Mother Asthma Breast cancer Substance abuse Other Mental problem Social History Social History Housing: Apartment Alcohol intake: current Alcohol intake frequency: holidays/special occasions only Alcohol type: wine Patient Tobacco Use Status: Former Tobacco user e-Cigarette/Vaping Use: Never Used Second Hand Smoke Exposure: Yes Substance Use Type: Hallucinogens and Marijuana Advance Directives: No Advance Directives Information Provided: No service: No Current occupational status: unemployed Physical Exam Vital Signs: Vital Signs: Last Vital Signs Temp 97.9 F 03/26/22 11:46 Pulse 56 03/26/22 11:46 Resp 14 03/26/22 11:46 BP 121/70 03/26/22 11:46 Pulse Ox 99 03/26/22 11:46 O2 Del Method 03/26/22 11:46 BMI result Body Mass Index 24.2 Const: General: cooperative, no acute distress, alert and awake Nutritional Appearance: well nourished Orientation/consciousness: patient oriented x3 Limitations: no limitations HEENT: Head: Yes normal to inspection and Yes atraumatic Ears: hearing grossly normal bilaterally and external ears normal General nose exam: Normal external nose present, no nasal discharge noted and no epistaxis Face and sinus: Yes normal facial exam, No abrasion and No laceration Mouth: Normal oral and palatal mucosa present, no drooling and no muffled voice Eyes: General: appearance normal, both eyes and all related structures Periorbital: periorbital findings normal Eyelids: Yes eyelids normal Conjunctivae: conjunctivae normal Pupils: Equal, round and reactive pupils present EOM: EOMs intact bilaterally Neck: Neck: Yes normal visual inspection, Yes full ROM and Yes no lymphadenopathy Chest: Chest palpation & inspection: normal inspection of the chest Resp: Effort & Inspection: normal respiratory effort and able to speak in complete sentences Auscultation: clear to auscultation bilaterally Cardio: Rate: regular rate Rhythm: regular rhythm GI: Inspection: Yes normal to inspection : Other: refused penile exam Neuro: General: patient oriented x3 and moves all extremities Cranial nerves: Yes Equal, round and reactive pupils present Cognition (Neuro): normal cognition Motor exam (neuro): 5/5 motor strength present throughout Sensory Exam: Normal double simultaneous stimulation for sensation Coordination: [id number] test normal Extrem: General: Yes normal to inspection, Yes full ROM and Yes capillary refill normal Psych: Appearance: grossly normal Mental Status: mental status grossly normal Affect: normal affect Attitude: cooperative Thought process: Normal thought process present Thought content: Normal thought content present Insight: Good insight present (Psych) MDM - Male Genitourinary MDM Narrative Medical decision making narrative: Patient is a 26 year old male presenting to the emergency department today with penile tip itching and anal itching. Patient's physical exam was unremarkable however, the patient refused to let me perform a penile exam. Patient's urine showed no acute process. I explained my physical exam findings as well as all test results to the patient. I answered all questions asked by the patient. Patient received IM Ceftriaxone while in the dpeartment. I stressed the importance of the patient taking his medication as prescribed. I stressed the importance of the patient following up with his primary care provider. I stressed the importance of the patient returning to the emergency department immediately if [his/her/their] symptoms were to worsen or if he were to develop any dizziness, shortness of breath, difficulty breathing, chest pain, blurry vision, loss of vision, nausea, vomiting, abdominal pain, fever, chills, back pain, or any other complaints. Patient verbalized agreement and understanding with this treatment plan and discharge. Differential Diagnosis Differential diagnosis: Likely urinary tract infection Medical Records Attestation: I reviewed the patient's medical records. Lab Data Attestation: I reviewed the patient's lab results. Labs: Lab Results 03/26/22 Range/Units 12:18 Chlam trachomat DNA PCR NOT DETECTED (Not Detect.) N.gonorrhoeae DNA (PCR) NOT DETECTED (Not Detect.) Discharge Plan Discharge Clinical Impression: Screening for STD (sexually transmitted disease), Pinworms Patient Disposition: Home, Self-Care Instructions: Pinworm Infection (ED), Sexually Transmitted Diseases (ED) Prescriptions: New doxycycline hyclate 100 mg capsule 100 mg PO BID 7 Days Qty: 14 0RF albendazole 200 mg tablet 400 mg PO Q2W Qty: 4 0RF Rx Instructions: must administer with food, preferably a high-fat meal No Action doxycycline hyclate 100 mg capsule 100 mg PO BID 10 Days Qty: 20 0RF metronidazole 500 mg tablet 500 mg PO BID 7 Days Qty: 14 0RF ondansetron HCl [Zofran] 4 mg tablet 4 mg PO Q6H PRN (Reason: nausea and vomiting) Qty: 10 0RF sildenafil 50 mg tablet 50 mg PO DAILY PRN (Reason: sexual activity) 4 Days Qty: 4 0RF Rx Instructions: administer 30 minutes to 4 hours before activity Referrals: Kolton Tang PA-C [Primary Care Provider] - Interventions: ED Discharge Assessment Last Done: 03/26/22 15:24 Discharge Date/Time: 03/26/22 15:30 Print Language: Lithuanian
[2022-03-26 15:06] LABS: CT PCR NOT DETECTED (Not Detect.); NG PCR NOT DETECTED (Not Detect.)
== END 2022-03-26 15:30 | disposition home or self-care (01) ==
PROVIDERS: Emergency Provider Emergency Medicine; PCP Physician Assistant
DX: B80 Enterobiasis (principal); Z20.2 Contact with and (suspected) exposure to infections with a predominantly sexual mode of transmission; F12.90 Cannabis use, unspecified, uncomplicated
CPT/HCPCS: 87491; 87591; 96372; 99282; 99284

== ENCOUNTER 2022-07-07 11:43 | Emergency (ER) | payer OTHER, SELFPAY ==
[2022-07-07 11:45] VITALS: BP 134/76; PULSE 55; RESP 16; TEMP 36.9; O2SAT 99; BMI 24.2
== END 2022-07-07 16:28 | disposition left against medical advice (07) ==
PROVIDERS: Emergency Provider Emergency Medicine; PCP Physician Assistant
DX: Z20.2 Contact with and (suspected) exposure to infections with a predominantly sexual mode of transmission (principal)
CPT/HCPCS: 99281

== ENCOUNTER 2022-07-19 14:17 | Emergency (ER) | payer OTHER, SELFPAY ==
[2022-07-19 14:39] VITALS: BP 180/81; PULSE 51; RESP 17; TEMP 36.6; O2SAT 98; BMI 24.2
[2022-07-19 14:56] LABS: Appearance Urine Clear; Color Urine Dark Yellow; Glucose Urine UA Negative (Negative); Leukocyte Esterase Urine Trace (Negative); Nitrite Urine Negative (Negative); PH 7.5 (5.0-9.0); Specific Gravity - Urine >= 1.030 (1.005-1.025); UMIC TRIGGER UACC YES; Urine Blood Negative (Negative); Urine Ketones 15 mg/dL (Negative); Urine Protein 30 (1+) mg/dL (Neg-Trace)
[2022-07-19 15:01] LABS: Bacteria Urine None Seen (None Seen); Hyaline Casts Urine 0-2 /LPF (0-2); RBC Urine 0-2 /HPF (0-2); Squamous Epithelial Cell Urine 0-2 /HPF (0-2); WBC Urine 0-5 /HPF (0-5)
[2022-07-19 17:11] LABS: CT PCR DETECTED (Not Detect.); NG PCR NOT DETECTED (Not Detect.)
== END 2022-07-19 20:18 | disposition left against medical advice (07) ==
PROVIDERS: Emergency Provider Emergency Medicine; PCP Physician Assistant
DX: R30.0 Dysuria (principal); Z20.2 Contact with and (suspected) exposure to infections with a predominantly sexual mode of transmission; Z20.822 Contact with and (suspected) exposure to COVID-19; Z79.899 Other long term (current) drug therapy
CPT/HCPCS: 81001; 87491; 87591; 99282

== ENCOUNTER 2022-07-19 23:21 | Emergency (ER) | payer OTHER, SELFPAY ==
[2022-07-20 00:10] VITALS: BP 160/80; PULSE 62; RESP 18; TEMP 37.1; O2SAT 98; BMI 24.2
--- NOTE | 2022-07-20 01:16 | ED.GENADULT ---
HPI - General Adult General Chief complaint: General Medical Stated complaint: needs meds for STD Time Seen by Provider: 07/20/22 01:16 Source: patient Mode of arrival: ambulatory Limitations: no limitations History of Present Illness HPI narrative: Patient with panel discharge for last 2 weeks with sexual exposure with history of STI in the past came here earlier sample was collected but patient left without being seen came back as sample is positive for chlamydia. Patient is in heterosexual relationship Related Data Previous Rx's Medication Instructions Recorded sildenafil 50 mg tablet 50 mg PO DAILY PRN sexual activity 06/10/21 4 days #4 tabs ondansetron HCl 4 mg tablet 4 mg PO Q6H PRN nausea and 09/09/21 (Zofran) vomiting #10 tabs doxycycline hyclate 100 mg capsule 100 mg PO BID 10 days #20 caps 10/11/21 metronidazole 500 mg tablet 500 mg PO BID 7 days #14 tabs 10/11/21 albendazole 200 mg tablet 400 mg PO Q2W 2 doses #4 tabs 03/26/22 doxycycline hyclate 100 mg capsule 100 mg PO BID 7 days #14 caps 03/26/22 doxycycline hyclate 100 mg tablet 100 mg PO BID #14 tabs 07/20/22 metronidazole 500 mg tablet 500 mg PO BID 7 days #14 tabs 07/20/22 Allergies Allergy/AdvReac Type Severity Reaction Status Date / Time pollen extracts [POLLEN] Allergy Unknown UNKNOWN Verified 05/30/22 13:52 Review of Systems Review of Systems: Yes all other systems are reviewed and are negative PMFSH Past Medical History Medical History MDD (major depressive disorder), recurrent episode, moderate Surgical History No history of previous surgery Family History Family History Father No problems noted. Mother Asthma Breast cancer Substance abuse Other Mental problem Social History Social History Housing: Apartment Alcohol intake: current Alcohol intake frequency: holidays/special occasions only Alcohol type: wine Patient Tobacco Use Status: Former Tobacco user e-Cigarette/Vaping Use: Never Used Second Hand Smoke Exposure: Yes Substance Use Type: Hallucinogens and Marijuana service: No Current occupational status: unemployed Physical Exam ED Vital Signs: Vital Signs - 24 hr 07/20/22 00:10 Temperature 98.8 F Pulse Rate 62 Respiratory Rate 18 Blood Pressure 160/80 H Pulse Oximetry 98 Oxygen Delivery Method Room Air BMI result Body Mass Index 24.2 Appearance: Alert. Oriented X3. No acute distress. CVS: Normal heart rate and rhythm. Pulses normal. Respiratory: No respiratory distress. Equal air entry bilateral, Abdomen: Soft and nontender. Bowel sounds are present, no mass palpable, no CVA tenderness Skin: Skin warm and dry. Normal skin color. Normal skin turgor. Neuro: Oriented X 3. Medical Decision Making MDM Narrative Medical decision making narrative: Patient urine positive for chlamydia which was done earlier will treat patient for GC chlamydia and trichomoniasis advised to follow-up with PCP let partner aware about the results Discharge Plan Discharge Clinical Impression: Chlamydia, Exposure to STD Patient Disposition: Home, Self-Care Instructions: Chlamydia (ED), Sexually Transmitted Diseases (ED) Additional Instructions: Safe Sexual practices as advised Take antibiotics as prescribed Let partner know about positive withdrawals for them to be treated also Prescriptions: New doxycycline hyclate 100 mg tablet 100 mg PO BID Qty: 14 0RF metronidazole 500 mg tablet 500 mg PO BID 7 Days Qty: 14 0RF No Action doxycycline hyclate 100 mg capsule 100 mg PO BID 10 Days Qty: 20 0RF metronidazole 500 mg tablet 500 mg PO BID 7 Days Qty: 14 0RF doxycycline hyclate 100 mg capsule 100 mg PO BID 7 Days Qty: 14 0RF albendazole 200 mg tablet 400 mg PO Q2W Qty: 4 0RF Rx Instructions: must administer with food, preferably a high-fat meal ondansetron HCl [Zofran] 4 mg tablet 4 mg PO Q6H PRN (Reason: nausea and vomiting) Qty: 10 0RF sildenafil 50 mg tablet 50 mg PO DAILY PRN (Reason: sexual activity) 4 Days Qty: 4 0RF Rx Instructions: administer 30 minutes to 4 hours before activity
[2022-07-20] MEDS: metroNIDAZOLE 500 MG TABLET PO (01:44)
[2022-07-20] MEDS: cefTRIAXone sodium 500 MG, Lidocaine HCl 1 % MPF 1 ML IM (01:47)
== END 2022-07-20 01:55 | disposition home or self-care (01) ==
PROVIDERS: Emergency Provider Internal Medicine
DX: A74.9 Chlamydial infection, unspecified (principal); Z20.2 Contact with and (suspected) exposure to infections with a predominantly sexual mode of transmission
CPT/HCPCS: 96372; 99282; 99284; J0696

== ENCOUNTER 2022-07-29 04:54 | Emergency (ER) | payer OTHER, SELFPAY ==
[2022-07-29 05:01] VITALS: BP 114/79; PULSE 61; RESP 16; TEMP 36.7; O2SAT 99; BMI 24.2
--- NOTE | 2022-07-29 05:25 | PC.NURSE ---
pt states he has no symptoms of burning on urination, no drainage. pt was worried due to he met a new girlfriend. pt left without being seen due to no symptoms.
== END 2022-07-29 05:27 | disposition left against medical advice (07) ==
PROVIDERS: Emergency Provider Emergency Medicine
DX: Z20.2 Contact with and (suspected) exposure to infections with a predominantly sexual mode of transmission (principal)
CPT/HCPCS: 99281

== ENCOUNTER 2022-11-03 18:30 | Emergency (ER) | payer OTHER, SELFPAY ==
[2022-11-03 18:34] VITALS: BP 148/86; PULSE 76; RESP 20; TEMP 36.7; O2SAT 99; BMI 23.2
--- NOTE | 2022-11-03 18:36 | ED.MALEGU ---
HPI - Male Genitourinary General Chief complaint: Urogenital-Male Stated complaint: std testing Time Seen by Provider: 11/03/22 18:39 Source: patient Mode of arrival: ambulatory Limitations: no limitations History of Present Illness HPI Narrative: Patient is a 27-year-old male who presents to the emergency department requesting STI testing. States he was treated for Chlamydia June 2022, wants repeat testing to assure infection is gone. Upon further investigation reports additional intercourse, unprotected with multiple partners. Denies penile discharge, lesions, pain, dysuria, urinary frequency. At this time he declines any prophylactic treatment. I just want a paper saying and clean . Reports that he does have a primary care provider, chest not followed up with them. Related Data Previous Rx's Medication Instructions Recorded sildenafil 50 mg tablet 50 mg PO DAILY PRN sexual activity 06/10/21 4 days #4 tabs ondansetron HCl 4 mg tablet 4 mg PO Q6H PRN nausea and 09/09/21 (Zofran) vomiting #10 tabs doxycycline hyclate 100 mg capsule 100 mg PO BID 10 days #20 caps 10/11/21 metronidazole 500 mg tablet 500 mg PO BID 7 days #14 tabs 10/11/21 albendazole 200 mg tablet 400 mg PO Q2W 2 doses #4 tabs 03/26/22 doxycycline hyclate 100 mg capsule 100 mg PO BID 7 days #14 caps 03/26/22 doxycycline hyclate 100 mg tablet 100 mg PO BID #14 tabs 07/20/22 metronidazole 500 mg tablet 500 mg PO BID 7 days #14 tabs 07/20/22 Allergies Allergy/AdvReac Type Severity Reaction Status Date / Time pollen extracts [POLLEN] Allergy Unknown UNKNOWN Verified 05/30/22 13:52 Review of Systems Review of Systems: Pertinent positives and negatives as noted in HPI Yes all other systems are reviewed and are negative [facility] Past Medical History Source: old records reviewed Medical History MDD (major depressive disorder), recurrent episode, moderate Surgical History No history of previous surgery Family History Family History Father No problems noted. Mother Asthma Breast cancer Substance abuse Other Mental problem Social History Social History Housing: Apartment Alcohol intake: current Alcohol intake frequency: holidays/special occasions only Alcohol type: wine Patient Tobacco Use Status: Former Tobacco user e-Cigarette/Vaping Use: Never Used Second Hand Smoke Exposure: Yes Substance Use Type: Hallucinogens and Marijuana Advance Directives: No Advance Directives Information Provided: No service: No Current occupational status: unemployed Physical Exam Vital Signs: Vital Signs: Last Vital Signs Temp 98.0 F 11/03/22 18:34 Pulse 76 11/03/22 18:34 Resp 20 11/03/22 18:34 BP 148/86 H 11/03/22 18:34 Pulse Ox 99 11/03/22 18:34 O2 Del Method 11/03/22 18:34 BMI result Body Mass Index 23.2 Appearance: Alert.?Oriented to person, place and time. No acute distress.?Normal affect. Neck: Normal inspection.? Neck supple.?? CVS: Heart sounds normal. Normal heart rate and rhythm.? Pulses normal.?? Respiratory: No respiratory distress.? Lung sounds clear to auscultation bilaterally?? Abdomen: Soft and non-tender. Normoactive bowel sounds. Skin: Skin warm and dry.? Normal skin color.? Neuro: Moves all extremities spontaneously. Sensation intact bilaterally. Ambulates with normal steady gait. Medical Decision Making Medical Decision Making MDM Narrative: Patient is a 27-year-old male with no reported past medical history presenting to the emergency department requesting testing for sexually transmitted infection. Currently asymptomatic, but has had sexual intercourse with multiple partners unprotected. Discussed with patient, will obtain testing today for chlamydia and gonorrhea, offered prophylactic treatment however he declines. Urinalysis sent for chlamydia and gonorrhea testing. Advised that he should follow-up with his primary care provider/[facility] [place] to have full STI testing including HIV, syphilis, herpes etc. encouraged protected intercourse to prevent sexually transmitted infections, discussed safe sex practices. All questions answered. Patient stable for discharge. Prescription Management I considered prescription management with: Antibiotic (As noted above) Discharge Plan Discharge Clinical Impression: Screening for STD (sexually transmitted disease) Patient Disposition: Home, Self-Care Instructions: Sexually Transmitted Diseases (ED), Male Condom Use (ED), Safe Sex Practices (ED) Additional Instructions: Should your results come back as positive you will receive a phone call from the hospital. You were offered preventative treatment/prophylactic treatment however you declined. Please contact your primary care provider/consider going to [facility] for further STI testing/screening. You may return to emergency department any new or worsening symptoms or concerns. Prescriptions: No Action doxycycline hyclate 100 mg capsule 100 mg PO BID 10 Days Qty: 20 0RF metronidazole 500 mg tablet 500 mg PO BID 7 Days Qty: 14 0RF doxycycline hyclate 100 mg capsule 100 mg PO BID 7 Days Qty: 14 0RF albendazole 200 mg tablet 400 mg PO Q2W Qty: 4 0RF Rx Instructions: must administer with food, preferably a high-fat meal ondansetron HCl [Zofran] 4 mg tablet 4 mg PO Q6H PRN (Reason: nausea and vomiting) Qty: 10 0RF doxycycline hyclate 100 mg tablet 100 mg PO BID Qty: 14 0RF metronidazole 500 mg tablet 500 mg PO BID 7 Days Qty: 14 0RF sildenafil 50 mg tablet 50 mg PO DAILY PRN (Reason: sexual activity) 4 Days Qty: 4 0RF Rx Instructions: administer 30 minutes to 4 hours before activity Referrals: Kolton Tang PA-C [Primary Care Provider] - Interventions: ED Discharge Assessment Last Done: 11/03/22 18:52 Discharge Date/Time: 11/03/22 18:56
[2022-11-04 09:14] LABS: CT PCR NOT DETECTED (Not Detect.)
[2022-11-04 09:15] LABS: NG PCR NOT DETECTED (Not Detect.)
== END 2022-11-03 18:56 | disposition home or self-care (01) ==
LOC: HO.ED 18:54
PROVIDERS: Nurse Practitioner Family; Emergency Provider Emergency Medicine Emergency Medical Services; PCP Physician Assistant
DX: Z20.2 Contact with and (suspected) exposure to infections with a predominantly sexual mode of transmission (principal); Z79.899 Other long term (current) drug therapy
CPT/HCPCS: 0353U; 99282; 99283

== ENCOUNTER 2022-11-23 17:17 | Emergency (ER) | payer OTHER, SELFPAY ==
--- NOTE | 2022-11-23 17:26 | ED.MALEGU ---
HPI - Male Genitourinary General Chief complaint: General Medical <ONESIMO Brown - Last Filed: 11/23/22 17:43> Stated complaint: ? std <ONESIMO Brown - Last Filed: 11/23/22 17:43> Time Seen by Provider: 11/23/22 18:58 <ONESIMO Brown - Last Filed: 11/23/22 17:43> Source: patient <ONESIMO Espinoza - Last Filed: 11/23/22 19:20> Mode of arrival: ambulatory <ONESIMO Espinoza Last Filed: 11/23/22 19:20> Limitations: no limitations <ONESIMO Espinoza Last Filed: 11/23/22 19:20> History of Present Illness HPI Narrative: 27-year-old male presenting requesting prophylactic treatment for STDs, patient had unprotected sex with somebody who reportedly has some sort of sexually transmitted disease, unclear which 1. Patient tells me that he is having some dysuria however no other medical complaints at this time. Patient does have history of STDs. Denies fevers, chills, chest pain, shortness of breath, rash, headache, vision changes, dizziness, nausea, vomiting, abdominal pain, testicular pain or swelling, discharge from penis <ONESIMO Espinoza Last Filed: 11/23/22 19:20> Related Data Home medications: Previous Rx's Medication Instructions Recorded sildenafil 50 mg tablet 50 mg PO DAILY PRN sexual activity 06/10/21 4 days #4 tabs ondansetron HCl 4 mg tablet 4 mg PO Q6H PRN nausea and 09/09/21 (Zofran) vomiting #10 tabs doxycycline hyclate 100 mg capsule 100 mg PO BID 10 days #20 caps 10/11/21 metronidazole 500 mg tablet 500 mg PO BID 7 days #14 tabs 10/11/21 albendazole 200 mg tablet 400 mg PO Q2W 2 doses #4 tabs 03/26/22 doxycycline hyclate 100 mg capsule 100 mg PO BID 7 days #14 caps 03/26/22 doxycycline hyclate 100 mg tablet 100 mg PO BID #14 tabs 07/20/22 metronidazole 500 mg tablet 500 mg PO BID 7 days #14 tabs 07/20/22 doxycycline hyclate 100 mg capsule 100 mg PO BID 10 days #20 caps 11/23/22 metronidazole 500 mg tablet 500 mg PO BID 7 days #14 tabs 11/23/22 <ONESIMO Brown - Last Filed: 11/23/22 17:43> Allergies/Adverse reactions: Allergies Allergy/AdvReac Type Severity Reaction Status Date / Time pollen extracts [POLLEN] Allergy Unknown UNKNOWN Verified 11/23/22 17:34 <ONESIMO Brown - Last Filed: 11/23/22 17:43> Review of Systems Review of Systems: Constitutional : No Weight loss, No Fever, No Chills, No Fatigue, No Malaise ENT/Mouth : No sore throat, No Rhinorrhea Eyes: No Eye Pain, No Swelling, No Redness Cardiovascular : No Chest Pain, No SOB, No Dyspnea on Exertion, No Orthopnea, No Edema, No Palpitations Respiratory : No Cough, No Sputum, No Wheezing Gastrointestinal : No Nausea, No Vomiting, No Diarrhea, No Constipation, No abdominal Pain, No Hematochezia, No Melena Genitourinary : + Dysuria, No Urinary Frequency, No Hematuria, Musculoskeletal : No joint pain, No Myalgias, No Joint Swelling Skin : No Skin Lesions, No rash Neuro : No Weakness, No Numbness, No Dizziness, No Headache Psych : No Anxiety/Panic, No Depression All other systems reviewed and are negative <ONESIMO Espinoza - Last Filed: 11/23/22 19:20> Yes all other systems are reviewed and are negative <ONESIMO Espinoza - Last Filed: 11/23/22 19:20> [facility] Past Medical History Attestation statement: The following information was validated with the patient. <ONESIMO Espinoza - Last Filed: 11/23/22 19:20> Source: old records reviewed and nursing notes reviewed <ONESIMO Espinoza - Last Filed: 11/23/22 19:20> Medical History: Medical History MDD (major depressive disorder), recurrent episode, moderate <ONESIMO Brown Last Filed: 11/23/22 17:43> Surgical History: Surgical History No history of previous surgery <ONESIMO Brown - Last Filed: 11/23/22 17:43> Family History Family History: Family History Father No problems noted. Mother Asthma Breast cancer Substance abuse Other Mental problem <ONESIMO Brown - Last Filed: 11/23/22 17:43> Social History Social History: Social History Housing: Apartment Alcohol intake: current Alcohol intake frequency: holidays/special occasions only Alcohol type: wine Patient Tobacco Use Status: Former Tobacco user e-Cigarette/Vaping Use: Never Used Second Hand Smoke Exposure: Yes Substance Use Type: Hallucinogens and Marijuana service: No Current occupational status: unemployed <ONESIMO Brown - Last Filed: 11/23/22 17:43> Physical Exam Vital Signs: Vital Signs: Last Vital Signs Temp 98.2 F 11/23/22 17:30 Pulse 86 11/23/22 17:30 Resp 18 11/23/22 17:30 BP 148/94 H 11/23/22 17:30 Pulse Ox 98 11/23/22 17:30 O2 Del Method 11/23/22 17:30 BMI result Body Mass Index 24.2 <ONESIMO Brown - Last Filed: 11/23/22 17:43> Vital Signs: Last Vital Signs Temp 98.2 F 11/23/22 17:30 Pulse 86 11/23/22 17:30 Resp 18 11/23/22 17:30 BP 148/94 H 11/23/22 17:30 Pulse Ox 98 11/23/22 17:30 O2 Del Method 11/23/22 17:30 BMI result Body Mass Index 24.2 vss <ONESIMO Espinoza - Last Filed: 11/23/22 19:20> Appearance: Alert.? Oriented X3.? No acute distress.? Head: Normocephalic, atraumatic, no step-offs or deformities Eyes: Pupils equal, round and reactive to light.? CVS: Normal heart rate and rhythm.? Pulses normal.? Respiratory: No respiratory distress.? Breath sounds normal.? Abdomen: Soft and nontender.? Skin: Skin warm and dry.? Normal skin color.? Normal skin turgor.? Extremities: No lower extremity edema.? No calf ttp. 5/5 strength to bilateral upper and lower extremities Back: No midline tenderness, no C-spine tenderness, full range of motion, no CVA tenderness bilaterally Sensitive exam: Deferred Neuro: Oriented X 3.? No motor deficit.? No sensory deficit. CN 2-12 intact <ONESIMO Espinoza - Last Filed: 11/23/22 19:20> Course Course Course Narrative: RME - 27 y/o male with history of schizophrenia, hx gonorrhea, hx chlamydia who presents to the ER for evaluation of possible STI. Had intercourse with his partner 2 days ago and was informed today that their previous partner tested positive for an STI. Denies any dysuria, penile discharge or penile rashes. Also having some upper lip swelling over the last several days. Plan: UA and GC/Chlamydia test ordered. <ONESIMO Brown - Last Filed: 11/23/22 17:43> Reevaluation(s) Reevaluation #1: UA and gonorrhea and chlamydia pending. Educated patient on diagnosis and treatment plan, answered all question, patient verbalizes understanding. At this time patient will be discharged home, advised to return with new or worsening symptoms. Educated on worrisome signs and symptoms and when to return. At this time I feel comfortable discharge home. <ONESIMO Espinoza - Last Filed: 11/23/22 19:20> Time: 19:17 <ONESIMO Espinoza - Last Filed: 11/23/22 19:20> Medical Decision Making Medical Decision Making MDM Narrative: 27-year-old male presents requesting prophylactic treatment for STDs. Physical exam benign Plan at this time STD testing and will do prophylactic treatment. Patient agrees to prophylactic treatment for gonorrhea, chlamydia and trichomonas. 500mg IM ceftriaxone has been given here and scripts for doxycycline 100 mg po BID X 7 days and metronidazole 500 mg po BID X 7 days have been given to the patient. Educated on safe sex practices, full pannel STD testing and speaking to? partners on possible STD. <ONESIMO Espinoza - Last Filed: 11/23/22 19:20> Differential Diagnosis Differential Diagnoses: The differential diagnosis associated with the presentation includes <ONESIMO Espinoza - Last Filed: 11/23/22 19:20> UTI, cystitis, STDs. <ONESIMO Espinoza - Last Filed: 11/23/22 19:20> Admission/Observation Consideration of admission/observation: Escalation of care including admission/observation considered <ONESIMO Espinoza - Last Filed: 11/23/22 19:20> Not indicated <ONESIMO Espinoza - Last Filed: 11/23/22 19:20> Core Measures AMI core measures followed: Yes <ONESIMO Espinoza - Last Filed: 11/23/22 19:20> Measure exclusions: not indicated <ONESIMO Espinoza - Last Filed: 11/23/22 19:20> Critical Care Time Critical Care Time Critical Care Time: No <ONESIMO Espinoza - Last Filed: 11/23/22 19:20> Discharge Plan Discharge Clinical Impression: Sexually transmitted disease exposure <ONESIMO Brown - Last Filed: 11/23/22 17:43> Patient Disposition: Home, Self-Care <ONESIMO Brown - Last Filed: 11/23/22 17:43> Additional Instructions: Take your medications as prescribed. If you were prescribed antibiotics today, it is important that you take your medication to their entirety, do not skip any doses, do not finish them early. Follow-up with your primary care provider this week. Return to the emergency department with new or worsening symptoms. Such as fevers, chills, chest pain, shortness of breath, nausea, vomiting, dizziness, headache, vision changes, lethargy In case of emergency call 911 You were treated here today with ceftriaxone, a medication that treats gonorrhea. I have sent to your pharmacy Metronidazole that covers trichomonas, and Doxycycline which covers for chlamydia. Please be reevaluated by a healthcare provider after completing your antibiotics. Do not stop them early, do not skip any doses. Until you are reevaluated by a health care provider please practice safe sex as disucussed. Please also have a conversation with your sexual partners.? I also advise you to obtain full panel STD testing to test for other STDs including HIV, Hepatitis B & C and syphilis with your PCP or a local clinic. <ONESIMO Brown - Last Filed: 11/23/22 17:43> Prescriptions: New doxycycline hyclate 100 mg capsule 100 mg PO BID 10 Days Qty: 20 0RF metronidazole 500 mg tablet 500 mg PO BID 7 Days Qty: 14 0RF No Action doxycycline hyclate 100 mg capsule 100 mg PO BID 10 Days Qty: 20 0RF metronidazole 500 mg tablet 500 mg PO BID 7 Days Qty: 14 0RF doxycycline hyclate 100 mg capsule 100 mg PO BID 7 Days Qty: 14 0RF albendazole 200 mg tablet 400 mg PO Q2W Qty: 4 0RF Rx Instructions: must administer with food, preferably a high-fat meal ondansetron HCl [Zofran] 4 mg tablet 4 mg PO Q6H PRN (Reason: nausea and vomiting) Qty: 10 0RF doxycycline hyclate 100 mg tablet 100 mg PO BID Qty: 14 0RF metronidazole 500 mg tablet 500 mg PO BID 7 Days Qty: 14 0RF sildenafil 50 mg tablet 50 mg PO DAILY PRN (Reason: sexual activity) 4 Days Qty: 4 0RF Rx Instructions: administer 30 minutes to 4 hours before activity <ONESIMO Brown - Last Filed: 11/23/22 17:43> Referrals: Kolton Tang PA-C [Primary Care Provider] - 2 days <ONESIMO Brown - Last Filed: 11/23/22 17:43> Stand Alone Forms: Work/School Release <ONESIMO Brown - Last Filed: 11/23/22 17:43>
[2022-11-23 17:30] VITALS: BP 148/94; PULSE 86; RESP 18; TEMP 36.8; O2SAT 98; BMI 24.2
[2022-11-23 19:35] LABS: Appearance Urine Clear; Color Urine Yellow; Glucose Urine UA Negative (Negative); Leukocyte Esterase Urine Negative (Negative); Nitrite Urine Negative (Negative); Specific Gravity - Urine 1.025 (1.005-1.025); Urine Blood Negative (Negative); Urine Ketones Negative (Negative); Urine Protein Negative (Neg-Trace)
[2022-11-23] MEDS: cefTRIAXone sodium 500 MG VIAL IM (19:49)
[2022-11-23] MEDS: Doxycycline Monohydrate 100 MG CAPSULE PO (19:50)
[2022-11-23] MEDS: metroNIDAZOLE 500 MG TABLET PO (19:50)
[2022-11-24 05:31] LABS: CT PCR NOT DETECTED (Not Detect.); NG PCR NOT DETECTED (Not Detect.)
== END 2022-11-23 19:53 | disposition home or self-care (01) ==
PROVIDERS: Physician Assistant; Emergency Provider Student in an Organized Health Care Education/Training Program; PCP Physician Assistant
DX: Z20.2 Contact with and (suspected) exposure to infections with a predominantly sexual mode of transmission (principal); F25.9 Schizoaffective disorder, unspecified; F12.90 Cannabis use, unspecified, uncomplicated
CPT/HCPCS: 0353U; 81003; 96372; 99282; 99283; 99284; J0696

== ENCOUNTER 2022-11-26 13:21 | Outpatient (REF) | payer OTHER, SELFPAY ==
[2022-11-27 09:28] LABS: HIV AB/AG Nonreactive (Nonreactive); HIV Num 1 0.08 S/CO (0.00-0.99); Hepatitis B Core Antibody Nonreactive (Nonreactive); ~HepC Num1 0.18 S/CO (0.00-0.79); ~Hepatitis B Surface Antibody NONREACTIVE (Nonreactive); ~Hepatitis C Antibody Nonreactive (Nonreactive)
[2022-11-27 12:12] LABS: HBsAGNum2 0.35; HBsAGNum3 0.26; Hepatitis B Surface Antigen Nonreactive (Negative)
[2022-12-01 20:49] LABS: Treponema pallidum Ab FTA ABS Nonreactive (Nonreactive)
== END 2022-11-26 13:22 | disposition home or self-care (01) ==
LOC: HO.LAB 13:21
PROVIDERS: PCP Physician Assistant; Visit Provider Internal Medicine
DX: Z11.4 Encounter for screening for human immunodeficiency virus [HIV] (principal); R79.89 Other specified abnormal findings of blood chemistry; Z20.2 Contact with and (suspected) exposure to infections with a predominantly sexual mode of transmission
CPT/HCPCS: 36415; 86704; 86706; 86780; 86803; 87340; 87389

== ENCOUNTER 2023-02-02 16:33 | Emergency (ER) | payer OTHER, SELFPAY ==
[2023-02-02 16:44] VITALS: BP 110/80; BP 121/72; PULSE 80; RESP 18; TEMP 37.1; O2SAT 100; BMI 23.2
--- NOTE | 2023-02-02 16:47 | ED.GENADULT ---
HPI - General Adult General Chief complaint: Wound/Laceration Stated complaint: laceration in police custody Time Seen by Provider: 02/02/23 16:44 Source: patient Limitations: no limitations History of Present Illness HPI narrative: 27-year-old male who presents to the ER in please custody complaining of abrasion to his right hand blisters on his feet. Patient states his legs also feel weak and has longstanding history of asthma. Patient was concerned his Achilles were injured. According to the police the patient ran for quite some time. Placed deny any altercation. Patient was wearing sneakers during his run. Patient is without nausea vomiting fever chills Related Data Previous Rx's Medication Instructions Recorded sildenafil 50 mg tablet 50 mg PO DAILY PRN sexual activity 06/10/21 4 days #4 tabs ondansetron HCl 4 mg tablet 4 mg PO Q6H PRN nausea and 09/09/21 (Zofran) vomiting #10 tabs doxycycline hyclate 100 mg capsule 100 mg PO BID 10 days #20 caps 10/11/21 metronidazole 500 mg tablet 500 mg PO BID 7 days #14 tabs 10/11/21 albendazole 200 mg tablet 400 mg PO Q2W 2 doses #4 tabs 03/26/22 doxycycline hyclate 100 mg capsule 100 mg PO BID 7 days #14 caps 03/26/22 doxycycline hyclate 100 mg tablet 100 mg PO BID #14 tabs 07/20/22 metronidazole 500 mg tablet 500 mg PO BID 7 days #14 tabs 07/20/22 doxycycline hyclate 100 mg capsule 100 mg PO BID 10 days #20 caps 11/23/22 metronidazole 500 mg tablet 500 mg PO BID 7 days #14 tabs 11/23/22 albuterol sulfate 90 mcg/actuation 2 puff inhalation Q6H PRN wheezing 02/02/23 aerosol inhaler #6.7 grams Allergies Allergy/AdvReac Type Severity Reaction Status Date / Time pollen extracts [POLLEN] Allergy Unknown UNKNOWN Verified 11/23/22 17:34 Review of Systems Review of Systems: General: No fever, no chills ENT: No sore throat, no ear pain Cardiovascular: No chest pain, no peripheral edema, no shortness of breath Respiratory: No dyspnea, no sputum production, no cough Muscle skeletal: Bilateral leg pain GI: No abdominal pain: no nausea vomiting, no diarrhea Psychiatric: No depression, no suicidal ideation, no homicidal ideation Skin: Abrasion to the right palm and blisters on the feet Immunology: No immunocompromised Hematology: No bleeding, no bruising PMFSH Past Medical History Attestation statement: The following information was validated with the patient. Medical History MDD (major depressive disorder), recurrent episode, moderate Surgical History No history of previous surgery Family History Family History Father No problems noted. Mother Asthma Breast cancer Substance abuse Other Mental problem Social History Social History Housing: Apartment Alcohol intake: current Alcohol intake frequency: holidays/special occasions only Alcohol type: wine Patient Tobacco Use Status: Former Tobacco user e-Cigarette/Vaping Use: Never Used Second Hand Smoke Exposure: Yes Substance Use Type: Hallucinogens and Marijuana Advance Directives: No Advance Directives Information Provided: No service: No Current occupational status: unemployed Physical Exam ED Vital Signs: Vital Signs - 24 hr 02/02/23 16:44 Temperature 98.7 F Pulse Rate 80 Respiratory Rate 18 Blood Pressure 121/72 Pulse Oximetry 100 Oxygen Delivery Method Room Air BMI result Body Mass Index 23.2 General appearance: Awake, alert, cooperative, in no acute distress Skin: Right palmar aspect very small abrasion nonsuturable. No areas of erythema or induration noted. Eyes: PERRL, EOMI ENT: Oropharynx is clear Neck: Soft supple full range of motion trachea is midline Extremities: Patient ambulatory moving all extremities purposely. Bilateral feet examed no erythema induration pulses sensation intact. Small area of peeling skin in the webspace of the 1st and 2nd toes. Achilles are bilaterally intact negative Nino's test Neuro: Alert oriented x3, no focal deficit Psych: Normal affect Course Course Course Narrative: Right hand abrasion Blisters to the feet Trench foot Cellulitis Laceration Achilles injury Right hand wound to be clean and bandaged by staff. Patient has no sign of Achilles rupture on clinical exam. Patient has no obvious injuries noted clinically. Will plan to discharge patient please custody. Patient also states he has a history of asthma lungs are clear to auscultation bilaterally. O2 sat 100% on room air Discharge Plan Discharge Clinical Impression: Abrasion hand Patient Disposition: Home, Self-Care Instructions: Abrasion (ED) Additional Instructions: Clinical signs of a hand abrasion. Achilles are intact Call PCP for follow-up Prescriptions: New albuterol sulfate 90 mcg/actuation HFA aerosol inhaler 2 puff inhalation Q6H PRN (Reason: wheezing) Qty: 6.7 0RF No Action doxycycline hyclate 100 mg capsule 100 mg PO BID 10 Days Qty: 20 0RF metronidazole 500 mg tablet 500 mg PO BID 7 Days Qty: 14 0RF doxycycline hyclate 100 mg capsule 100 mg PO BID 7 Days Qty: 14 0RF albendazole 200 mg tablet 400 mg PO Q2W Qty: 4 0RF Rx Instructions: must administer with food, preferably a high-fat meal doxycycline hyclate 100 mg capsule 100 mg PO BID 10 Days Qty: 20 0RF metronidazole 500 mg tablet 500 mg PO BID 7 Days Qty: 14 0RF ondansetron HCl [Zofran] 4 mg tablet 4 mg PO Q6H PRN (Reason: nausea and vomiting) Qty: 10 0RF doxycycline hyclate 100 mg tablet 100 mg PO BID Qty: 14 0RF metronidazole 500 mg tablet 500 mg PO BID 7 Days Qty: 14 0RF sildenafil 50 mg tablet 50 mg PO DAILY PRN (Reason: sexual activity) 4 Days Qty: 4 0RF Rx Instructions: administer 30 minutes to 4 hours before activity
--- NOTE | 2023-02-02 16:50 | PC.NURSE ---
Patient from police custody wanting evaluation of blisters on his feet and a small abrasion on his right hand. Area on hand is approximately the size of a pencil eraser and no s/s of infection. Blisters to feet are intact at this time.
[2023-02-02] MEDS: Bacitracin Oint 0.9 GM PACKET 4 APPL TOPICAL (17:19)
[2023-02-02 17:23] VITALS: BP 125/74; PULSE 86; RESP 15; O2SAT 100
--- NOTE | 2023-02-02 17:25 | PC.NURSE ---
Patient states he needs something for his asthma, provider made aware
== END 2023-02-02 17:53 | disposition home or self-care (01) ==
PROVIDERS: Emergency Provider Internal Medicine; PCP Physician Assistant
DX: S60.511A Abrasion of right hand, initial encounter (principal); X58.XXXA Exposure to other specified factors, initial encounter; Y93.9 Activity, unspecified; Y92.9 Unspecified place or not applicable; Y99.9 Unspecified external cause status
CPT/HCPCS: 99283; 99284

== ENCOUNTER 2023-07-09 13:16 | Emergency (ER) | payer MEDICAID, SELFPAY ==
[2023-07-09 13:25] VITALS: BP 140/69; PULSE 46; RESP 16; TEMP 36.5; O2SAT 100; BMI 23.0
--- NOTE | 2023-07-09 13:26 | ED.GENADULT ---
HPI - General Adult General Chief complaint: Urogenital-Male Stated complaint: std testing Time Seen by Provider: 07/09/23 14:32 Source: patient Mode of arrival: ambulatory Limitations: no limitations History of Present Illness HPI narrative: Patient is a 27 year old assigned male at with a history of IBS presenting to the emergency department today with for STD screening. Patient states that he has some clear discharge from his penis after having sex with a new partner. Patient denies any dizziness, lightheadedness, abdominal pain, nausea, vomiting, fever, chills, blurry vision, double vision, loss of vision, chest pain, difficulty breathing, shortness of breath, back pain, night sweats, pain with urination, increased urinary frequency, increased urinary urgency, blood in his urine or stool, syncope or a near syncopal episode, recent trauma or falls, bowel incontinence, bladder incontinence, bowel retention, bladder retention, or any other complaints at this time. Onset (ago): week(s) (1.5) Severity: mild Relieving factors: none Exacerbating factors: none Associated symptoms: denies other symptoms Treatments prior to arrival: none Related Data Previous Rx's Medication Instructions Recorded sildenafil 50 mg tablet 50 mg PO DAILY PRN sexual activity 06/10/21 4 days #4 tabs ondansetron HCl 4 mg tablet 4 mg PO Q6H PRN nausea and 09/09/21 (Zofran) vomiting #10 tabs doxycycline hyclate 100 mg capsule 100 mg PO BID 10 days #20 caps 10/11/21 metronidazole 500 mg tablet 500 mg PO BID 7 days #14 tabs 10/11/21 albendazole 200 mg tablet 400 mg (2 x 200 mg) PO Q2W 2 doses 03/26/22 #4 tabs doxycycline hyclate 100 mg capsule 100 mg PO BID 7 days #14 caps 03/26/22 doxycycline hyclate 100 mg tablet 100 mg PO BID #14 tabs 07/20/22 metronidazole 500 mg tablet 500 mg PO BID 7 days #14 tabs 07/20/22 doxycycline hyclate 100 mg capsule 100 mg PO BID 10 days #20 caps 11/23/22 metronidazole 500 mg tablet 500 mg PO BID 7 days #14 tabs 11/23/22 albuterol sulfate 90 mcg/actuation 2 puff inhalation Q6H PRN wheezing 02/02/23 aerosol inhaler #6.7 grams doxycycline hyclate 100 mg tablet 100 mg PO BID 7 days #14 tabs 07/09/23 Allergies Allergy/AdvReac Type Severity Reaction Status Date / Time pollen extracts [POLLEN] Allergy Unknown UNKNOWN Verified 11/23/22 17:34 Review of Systems Constitutional: Constitutional: Reports no additional constitutional complaints, Denies chills, Denies fever(s) and Denies night sweats Eyes: Eyes: Reports no additional eye complaints, Denies blurry vision, Denies change in vision, Denies diplopia, Denies eye discharge, Denies loss of vision and Denies eye pain ENT: Denies dizziness Cardiovascular: Cardiovascular: Reports no additional cardiovascular complaints, Denies chest pain, Denies lightheadedness, Denies Loss of Consciousness and Denies dyspnea Respiratory: Respiratory: Reports no additional respiratory complaints and Denies dyspnea Gastrointestinal: Gastrointestinal: Reports no additional gastrointestinal complaints, Denies abdominal pain, Denies melena, Denies hematochezia, Denies change in bowel habits and Denies change in stool character Genitourinary: Genitourinary: Reports no additional male genitourinary complaints, Denies hematuria, Denies oliguria, Denies difficulty urinating, Denies dysuria, Denies urinary frequency, Denies urinary hesitancy, Denies urinary incontinence and Denies urinary urgency Comments: clear penile discharge Musculoskeletal: Musculoskeletal: Reports no additional musculoskeletal complaints, Denies numbness and Denies tingling Neurologic: Denies dizziness, Denies loss of vision, Denies numbness and Denies tingling Psychiatric: Psychiatric: Reports no additional psychiatric complaints Endocrine: Endocrine: Reports no additional endocrine complaints Hematologic/Lymphatic: Hematologic/Lymphatic: Reports no additional hematologic/lymphatic complaints Allergic/Immunologic: Allergic/Immunologic: Reports no additional allergic/immunologic complaints [facility] Past Medical History Attestation statement: The following information was validated with the patient. Source: old records reviewed and nursing notes reviewed Medical History COVID-19 History of rhabdomyolysis Acute episode of schizophrenia in remission Screening for STD (sexually transmitted disease) Screening for hypothyroidism Screening for diabetes mellitus (DM) MDD (major depressive disorder), recurrent episode, moderate Surgical History No history of previous surgery Family History Family History Father No problems noted. Mother Asthma Breast cancer Substance abuse Other Mental problem Social History Social History Housing: Apartment Alcohol intake: unknown Patient Tobacco Use Status: Former Tobacco user e-Cigarette/Vaping Use: Never Used Second Hand Smoke Exposure: Yes Substance Use Type: Hallucinogens and Marijuana Advance Directives: No service: No Current occupational status: unemployed Physical Exam ED Vital Signs: Vital Signs - 24 hr 07/09/23 13:25 Temperature 97.7 F Pulse Rate 46 L Respiratory Rate 16 Blood Pressure 140/69 H Pulse Oximetry 100 Oxygen Delivery Method Room Air BMI result Body Mass Index 23.0 Const General: cooperative, no acute distress, alert and awake Nutritional Appearance: well nourished Orientation/consciousness: patient oriented x3 Limitations: no limitations HENMT Head: Yes normal to inspection and Yes atraumatic Ears: hearing grossly normal bilaterally and external ears normal General nose exam: Normal external nose present, no nasal discharge noted and no epistaxis Face and sinus: Yes normal facial exam, No abrasion and No laceration Mouth: Normal oral and palatal mucosa present, no drooling and no muffled voice Eyes General: appearance normal, both eyes and all related structures Periorbital: periorbital findings normal Eyelids: Yes eyelids normal Conjunctivae: conjunctivae normal Pupils: Equal, round and reactive pupils present EOM: EOMs intact bilaterally Neck Neck: Yes normal visual inspection, Yes full ROM and Yes no lymphadenopathy Chest Chest palpation & inspection: normal inspection of the chest Resp Effort & Inspection: normal respiratory effort and able to speak in complete sentences GI Inspection: Yes normal to inspection Neuro General: patient oriented x3 and moves all extremities Cranial nerves: Yes Equal, round and reactive pupils present Cognition (Neuro): normal cognition Motor exam (neuro): 5/5 motor strength present throughout Sensory Exam: Normal double simultaneous stimulation for sensation Coordination: [id number] test normal Extrem General: Yes normal to inspection, Yes full ROM and Yes capillary refill normal Psych Appearance: grossly normal Mental Status: mental status grossly normal Affect: normal affect Attitude: cooperative Thought process: Normal thought process present Thought content: Normal thought content present Insight: Good insight present (Psych) Course Course Course Narrative: RME- 27 year old male presents for evaluation of chlamydia/gonorrhea testing. He complains of urethral discharge and pain. Plan for UA, CT/NG Medications Administered Discontinued Medications Generic Name Dose Route Start Last Admin Trade Name Brian PRN Reason Stop Dose Admin Ceftriaxone Sodium 500 mg/ 0 mg 07/09/23 14:41 07/09/23 15:31 Lidocaine HCl 1 ml IM 07/09/23 14:42 500 kit ONCE ONE Administration Medical Decision Making Medical Decision Making [facility] Narrative: Patient is a 27 year old assigned male at with a history of IBS presenting to the emergency department today with STD screening. Patient's physical exam was unremarkable. Patient's blood work is pending. Patient's urine showed no acute process. I explained my physical exam findings as well as all test results to the patient. I answered all questions asked by the patient. Patient received IM Ceftriaxone while in the department and will be discharged on PO Doxycycline. I stressed the importance of the patient taking his medication as prescribed. I stressed the importance of the patient following up with his primary care provider. I stressed the importance of the patient returning to the emergency department immediately if his symptoms were to worsen or if he were to develop any dizziness, shortness of breath, difficulty breathing, chest pain, blurry vision, loss of vision, nausea, vomiting, abdominal pain, fever, chills, back pain, or any other complaints. Patient verbalized agreement and understanding with this treatment plan and discharge. Differential Diagnosis Differential Diagnoses: The differential diagnosis associated with the presentation includes STD exposure Chlamydia Gonorrhea Lab Data [facility] Lab Attestation statement: I reviewed the patient's lab results. My interpretation of these results are in the [facility] rationale portion of this note. Labs: Lab Results 07/09/23 Range/Units 13:47 Urine Color Yellow Urine Appearance Clear Urine pH 7.0 (5.0-9.0) Ur Specific [place] 1.025 (1.005-1.025) Urine Protein 30 (1+) H (Neg-Trace) mg/dL Urine Glucose (UA) Negative (Negative) mg/dL Urine Ketones 15 (Negative) mg/dL Urine Blood Negative (Negative) Urine Nitrite Negative (Negative) Ur Leukocyte Esterase Negative (Negative) Urine RBC 0-2 (0-2) /HPF Urine WBC 0-5 (0-5) /HPF Ur Squamous Epith Cells 0-2 (0-2) /HPF Urine Bacteria None Seen (None Seen) Hyaline Casts 0-2 (0-2) /LPF Chlam trachomat DNA PCR NOT DETECTED (Not Detect.) N.gonorrhoeae DNA (PCR) NOT DETECTED (Not Detect.) Prescription Management I considered prescription management with: Antibiotic (patient prescribed an antibiotic.) Discharge Plan Discharge Clinical Impression: Possible exposure to STD Patient Disposition: Home, Self-Care Instructions: Sexually Transmitted Diseases (ED), Safe Sex Practices (ED) Additional Instructions: We will call you if your results are positive for anything. Take your medication as prescribed. Follow up with your primary care provider. Return to the emergency department immediately if your symptoms worsen or if you develop any dizziness, shortness of breath, difficulty breathing, chest pain, blurry vision, loss of vision, nausea, vomiting, abdominal pain, fever, chills, back pain, or any other complaints. Prescriptions: New doxycycline hyclate 100 mg tablet 100 mg PO BID 7 Days Qty: 14 0RF No Action doxycycline hyclate 100 mg capsule 100 mg PO BID 10 Days Qty: 20 0RF metronidazole 500 mg tablet 500 mg PO BID 7 Days Qty: 14 0RF doxycycline hyclate 100 mg capsule 100 mg PO BID 7 Days Qty: 14 0RF albendazole 200 mg tablet 400 mg PO Q2W Qty: 4 0RF Rx Instructions: must administer with food, preferably a high-fat meal doxycycline hyclate 100 mg capsule 100 mg PO BID 10 Days Qty: 20 0RF metronidazole 500 mg tablet 500 mg PO BID 7 Days Qty: 14 0RF ondansetron HCl [Zofran] 4 mg tablet 4 mg PO Q6H PRN (Reason: nausea and vomiting) Qty: 10 0RF doxycycline hyclate 100 mg tablet 100 mg PO BID Qty: 14 0RF metronidazole 500 mg tablet 500 mg PO BID 7 Days Qty: 14 0RF albuterol sulfate 90 mcg/actuation HFA aerosol inhaler 2 puff inhalation Q6H PRN (Reason: wheezing) Qty: 6.7 0RF sildenafil 50 mg tablet 50 mg PO DAILY PRN (Reason: sexual activity) 4 Days Qty: 4 0RF Rx Instructions: administer 30 minutes to 4 hours before activity Referrals: Kolton Tang PA-C [Primary Care Provider] - Interventions: ED Discharge Assessment Last Done: 07/09/23 15:33 Discharge Date/Time: 07/09/23 15:35 Print Language: Yoruba
[2023-07-09 13:58] LABS: Appearance Urine Clear; Color Urine Yellow; Glucose Urine UA Negative (Negative); Leukocyte Esterase Urine Negative (Negative); Nitrite Urine Negative (Negative); Specific Gravity - Urine 1.025 (1.005-1.025); UMIC TRIGGER UACC YES; Urine Blood Negative (Negative); Urine Ketones 15 mg/dL (Negative); Urine Protein 30 (1+) mg/dL (Neg-Trace)
[2023-07-09 14:00] LABS: Bacteria Urine None Seen (None Seen); Hyaline Casts Urine 0-2 /LPF (0-2); RBC Urine 0-2 /HPF (0-2); Squamous Epithelial Cell Urine 0-2 /HPF (0-2); WBC Urine 0-5 /HPF (0-5)
[2023-07-09] MEDS: cefTRIAXone sodium 500 MG, Lidocaine HCl 1 % MPF 1 ML IM (15:31)
[2023-07-09 15:32] LABS: CT PCR NOT DETECTED (Not Detect.); NG PCR NOT DETECTED (Not Detect.)
[2023-07-12 07:51] LABS: Syphilis Screen Nonreactive (Nonreactive)
[2023-07-12 08:22] LABS: HIV AB/AG Nonreactive (Nonreactive); HIV Num 1 0.06 S/CO (0.00-0.99)
== END 2023-07-09 15:35 | disposition home or self-care (01) ==
PROVIDERS: Physician Assistant; Physician Assistant Medical; Emergency Provider Student in an Organized Health Care Education/Training Program; PCP Physician Assistant
DX: R36.9 Urethral discharge, unspecified (principal); Z20.2 Contact with and (suspected) exposure to infections with a predominantly sexual mode of transmission; Z87.891 Personal history of nicotine dependence
CPT/HCPCS: 0353U; 36415; 81001; 86780; 87389; 96372; 99283; 99284; J0696

== ENCOUNTER 2023-07-21 16:54 | Emergency (ER) | payer MEDICAID, SELFPAY ==
[2023-07-21 18:10] VITALS: BP 134/76; PULSE 58; RESP 20; TEMP 36.3; O2SAT 99; BMI 23.9
--- NOTE | 2023-07-21 18:15 | ED_ITS ---
HPI - General Adult General Chief complaint: Urogenital-Male Stated complaint: std check Time Seen by Provider: 07/21/23 21:49 Source: patient Mode of arrival: ambulatory Limitations: no limitations History of Present Illness HPI narrative: Complaining of rash on the glans for past few weeks was severe 07/09 test for STD were negative including syphilis Related Data Previous Rx's Medication Instructions Recorded sildenafil 50 mg tablet 50 mg PO DAILY PRN sexual activity 06/10/21 4 days #4 tabs ondansetron HCl 4 mg tablet 4 mg PO Q6H PRN nausea and 09/09/21 (Zofran) vomiting #10 tabs doxycycline hyclate 100 mg capsule 100 mg PO BID 10 days #20 caps 10/11/21 metronidazole 500 mg tablet 500 mg PO BID 7 days #14 tabs 10/11/21 albendazole 200 mg tablet 400 mg (2 x 200 mg) PO Q2W 2 doses 03/26/22 #4 tabs doxycycline hyclate 100 mg capsule 100 mg PO BID 7 days #14 caps 03/26/22 doxycycline hyclate 100 mg tablet 100 mg PO BID #14 tabs 07/20/22 metronidazole 500 mg tablet 500 mg PO BID 7 days #14 tabs 07/20/22 doxycycline hyclate 100 mg capsule 100 mg PO BID 10 days #20 caps 11/23/22 metronidazole 500 mg tablet 500 mg PO BID 7 days #14 tabs 11/23/22 albuterol sulfate 90 mcg/actuation 2 puff inhalation Q6H PRN wheezing 02/02/23 aerosol inhaler #6.7 grams doxycycline hyclate 100 mg tablet 100 mg PO BID 7 days #14 tabs 07/09/23 bacitracin zinc 500 unit-polymyxin 1 appl topical BID #14.2 grams 07/21/23 B 10,000 unit/gram topical ointment Allergies Allergy/AdvReac Type Severity Reaction Status Date / Time pollen extracts [POLLEN] Allergy Unknown UNKNOWN Verified 11/23/22 17:34 Review of Systems 2 Review of Systems: Yes all other systems are reviewed and are negative PMFSH Past Medical History Medical History COVID-19 History of rhabdomyolysis Acute episode of schizophrenia in remission Screening for STD (sexually transmitted disease) Screening for hypothyroidism Screening for diabetes mellitus (DM) MDD (major depressive disorder), recurrent episode, moderate Surgical History No history of previous surgery Family History Family History Father No problems noted. Mother Asthma Breast cancer Substance abuse Other Mental problem Social History Social History Housing: Apartment Alcohol intake: unknown Patient Tobacco Use Status: Former Tobacco user e-Cigarette/Vaping Use: Never Used Second Hand Smoke Exposure: Yes Substance Use Type: Hallucinogens and Marijuana Advance Directives: No Advance Directives Information Provided: Yes service: No Current occupational status: unemployed Physical Exam ED Vital Signs: Vital Signs - 24 hr 07/21/23 18:10 07/21/23 20:00 Temperature 97.4 F Pulse Rate 58 68 Respiratory Rate 20 18 Blood Pressure 134/76 126/77 Pulse Oximetry 99 100 Oxygen Delivery Method Room Air Room Air BMI result Body Mass Index 23.9 Male genitals images: 2 1. Nonspecific slightly erythematous rash no pus discharge around the edge of the glans, no penile discharge Course Course Course Narrative: RME; 27 yold male presents to the ED for evaluation of std exposure and resolving red lesions on penis. patient had sex with the same person after being seen for std exposure on 07/09/2023. repepat UA and CTNG ordered Medical Decision Making Medical Decision Making MDM Narrative: Patient likely has dermatitis apply bacitracin ointment discharge Lab Data Labs: Lab Results 07/21/23 Range/Units 18:45 Urine Color Yellow Urine Appearance Clear Urine pH 8.0 (5.0-9.0) Ur Specific [place] 1.020 (1.005-1.025) Urine Protein Negative (Neg-Trace) mg/dL Urine Glucose (UA) Negative (Negative) mg/dL Urine Ketones Negative (Negative) mg/dL Urine Blood Negative (Negative) Urine Nitrite Negative (Negative) Ur Leukocyte Esterase Negative (Negative) Chlam trachomat DNA PCR NOT DETECTED (Not Detect.) N.gonorrhoeae DNA (PCR) NOT DETECTED (Not Detect.) Discharge Plan Discharge Clinical Impression: Penile rash Patient Disposition: Home, Self-Care Instructions: Acute Rash (ED) Additional Instructions: Apply bacitracin ointment as advised Your tests were negative for STDs on 07/09/2023 Prescriptions: New bacitracin zinc-polymyxin B 500-10,000 unit/gram ointment 1 appl topical BID Qty: 14.2 0RF No Action doxycycline hyclate 100 mg capsule 100 mg PO BID 10 Days Qty: 20 0RF metronidazole 500 mg tablet 500 mg PO BID 7 Days Qty: 14 0RF doxycycline hyclate 100 mg capsule 100 mg PO BID 7 Days Qty: 14 0RF albendazole 200 mg tablet 400 mg PO Q2W Qty: 4 0RF Rx Instructions: must administer with food, preferably a high-fat meal doxycycline hyclate 100 mg capsule 100 mg PO BID 10 Days Qty: 20 0RF metronidazole 500 mg tablet 500 mg PO BID 7 Days Qty: 14 0RF ondansetron HCl [Zofran] 4 mg tablet 4 mg PO Q6H PRN (Reason: nausea and vomiting) Qty: 10 0RF doxycycline hyclate 100 mg tablet 100 mg PO BID Qty: 14 0RF metronidazole 500 mg tablet 500 mg PO BID 7 Days Qty: 14 0RF doxycycline hyclate 100 mg tablet 100 mg PO BID 7 Days Qty: 14 0RF albuterol sulfate 90 mcg/actuation HFA aerosol inhaler 2 puff inhalation Q6H PRN (Reason: wheezing) Qty: 6.7 0RF sildenafil 50 mg tablet 50 mg PO DAILY PRN (Reason: sexual activity) 4 Days Qty: 4 0RF Rx Instructions: administer 30 minutes to 4 hours before activity Interventions: ED Discharge Assessment Last Done: 07/21/23 21:57 Discharge Date/Time: 07/21/23 21:58
[2023-07-21 19:02] LABS: Appearance Urine Clear; Color Urine Yellow; Glucose Urine UA Negative (Negative); Leukocyte Esterase Urine Negative (Negative); Nitrite Urine Negative (Negative); Urine Blood Negative (Negative); Urine Ketones Negative (Negative); Urine Protein Negative (Neg-Trace)
[2023-07-21 20:00] VITALS: BP 126/77; PULSE 68; RESP 18; O2SAT 100
[2023-07-22 04:48] LABS: CT PCR NOT DETECTED (Not Detect.); NG PCR NOT DETECTED (Not Detect.)
== END 2023-07-21 21:58 | disposition home or self-care (01) ==
PROVIDERS: Physician Assistant; Emergency Provider Internal Medicine; PCP Physician Assistant
DX: N48.29 Other inflammatory disorders of penis (principal); Z87.891 Personal history of nicotine dependence
CPT/HCPCS: 0353U; 81003; 99282; 99283

== ENCOUNTER 2024-05-22 21:03 | Emergency (ER) | payer OTHER, SELFPAY ==
--- NOTE | ~2024-05-22 | XR_ITS ---
EXAMINATION: XR SHOULDER, RIGHT CLINICAL INFORMATION: Shoulder pain COMPARISON: None available. TECHNIQUE: 3 view of the right shoulder. FINDINGS: On the AP view of the shoulder there is a radiopacity seen which is round measuring 0.9 cm which I suspect is likely external to the patient, likely a snap on the patient's gown. This is not seen on the other 2 views. The bones and soft tissues are unremarkable. No fracture. Glenohumeral and acromioclavicular alignment is anatomic with normal joint space. No abnormal soft tissue calcifications. XR/XR shoulder RT min 2V IMPRESSION: No evidence of an acute injury. Electronically signed by: Oscar Johnson MD 05/22/2024 10:37 PM EDT
[2024-05-22 21:11] VITALS: BP 125/66; PULSE 73; RESP 18; TEMP 36.7; O2SAT 97; BMI 26.6
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
--- OUTSIDE RECORDS SUMMARY | 2024-05-23 01:32 | XMS_ITS | Continuity of Care Document ---
Author Organization [facility] ter Address [address] [place] [address]- Care Team Providers Care Rocket Propellant Plant Supervisor Name Role Phone Not on Staff, PCP Primary Care Physician Unavail able Encounter [facility] Date(s): 03/07/24 - 03/07/[address] [address]- Encounter Diagnosis Acute schizophrenia(Final) - 03/07/24 Discharge Disposition: Transfer to [facility] Facility Attending Physician: Joseph Moss MD Admitting Physician: Joseph Moss MD Referring Physician: Not on Staff, Referring MD Allergies, Adverse Reactions, Alerts No Known Allergies Immunizations Given and Recorded Vaccine Date Status Refusal Reason tetanus/diphtheria/pertussis, acel(Tdap) 1 02/07/18 Given Influenza Virus Vaccine (oldterm) 2 02/07/18 Given 1Result Comment: [02/07/2018] [facility] [id number] 2Admin Note: declined Medications risperiDONE 1 mg oral tablet 1 mg, 1, tablet, By Mouth, 2 times a day, # 60 tablet, Refills 0, Tot. Refills 0, Maintenance, 01/10/21 14:02:00 EDT, Route to Pharmacy Electronically, [facility]/pharmacy #[id number], Partial fill upon patient request if the prescription is for a schedule II opio... Start Date: 01/10/21 Stop Date: 02/09/21 Status: Ordered Problem List Condition Confirmation Course Effective Dates Status H ealth Status Informant Adjustment disorder Confirmed Active ADHD Confirmed Active Depression Confirmed Active Marijuana use Confirmed Active Schizophrenia Confirmed Active Vital Signs Most recent to oldest [Reference Range]: 1 2 3 Height 168 cm (03/07/24 2:40 PM) 168 cm (03/07/24 9:15 AM) 168 cm (03/07/24 3:02 AM) Weight 62.8 kg (03/07/24 2:40 PM) 62.8 kg (03/07/24 9:15 AM) 62.8 kg (03/07/24 3:02 AM) Oxygen Saturation [94-100 %] 99 % (03/07/24 2:40 PM) 97 % (03/07/24 9:15 AM) 99 % (03/07/24 5:49 AM) Pulse Rate [55-90 bpm] 57 bpm (03/07/24 2:40 PM) 75 bpm (03/07/24 9:15 AM) 77 bpm (03/07/24 5:49 AM) Body Mass Index [18.5-24.99 kg/m2] 22.25 kg/m2 (03/07/24 2:40 PM) 22.25 kg/m2 (03/07/24 9:15 AM) 22.25 kg/m2 (03/07/24 3:02 AM) Blood Pressure [90-138/55-84 mm Hg] 127/88mm Hg (03/07/24 2:40 PM) 140/101mm Hg *H* (03/07/24 9:15 AM) 133/80mm Hg (03/07/24 5:49 AM) Respiratory Rate [16-30 br/min] 18 br/min (03/07/24 2:40 PM) 10 br/min *L* (03/07/24 9:15 AM) 18 br/min (03/07/24 5:49 AM) Temperature [96.8-100.4 DegF] 98.2 DegF (03/07/24 2:40 PM) 98.6 DegF (03/07/24 9:15 AM) 98.6 DegF (03/07/24 5:49 AM) Mode of Delivery (Oxygen) Room air (03/07/24 2:40 PM) Room air (03/07/24 9:15 AM) Room air (03/07/24 5:49 AM) Blood pressure sites Arm, left (03/07/24 2:40 PM) Arm, left (03/07/24 9:15 AM) Arm, left (03/07/24 3:02 AM) Temperature Route Oral (03/07/24 2:40 PM) Oral (03/07/24 9:15 AM) Oral (03/07/24 5:49 AM) Dry Weight 62.8 kg (03/07/24 2:40 PM) 62.8 kg (03/07/24 9:15 AM) 62.8 kg (03/07/24 3:02 AM) Weight Obtained Via Standing scale (03/07/24 3:02 AM) Dry Weight Obtained Via Standing scale (03/07/24 3:02 AM) Social History Social History Type Response Smoking Status Former smoker; Tobac co user in household: Yes entered on: 01/06/18 Sex Hospital Progress note * Event Display: Progress Note Hospital Authored Date: [id number] Patient Care team information Care Team Personnel Name: Basilio Koch RN Position: [facility] RN Member Role: Primary Care Nurse Name: Not on Staff, PCP Position: [facility] Physician (General Medicine) Member Role: PCP Name: Gideon Cueva MD Position: [facility] Renal MD Member Role: Lifetime Consulting Physician Address: Address: [address] [facility] [facility] [address] [facility] [place] [address]- Care Team Related Persons Name: SERA COPELAND Address: home [address] [place] [address] Name: SERA AYALA Name: ELIZABETH VALVERDE
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
--- OUTSIDE RECORDS SUMMARY | 2024-05-23 01:32 | XMS_ITS | Continuity of Care Document ---
Author Organization [facility] ter Address [address] [place] [phone]- Care Team Providers Care Channel Opener Outsoles Name Role Phone Kolton Lagunas Primary Care Physician Encounter [facility] [place] Date(s): 01/08/21 - 01/10/[address] [id number] Discharge Disposition: A-D/C Home Attending Physician: Anthony Montez MD Admitting Physician: Bang Quarles MD Referring Physician: Not on Staff, Referring MD Allergies, Adverse Reactions, Alerts Substance Reaction Severity Status NKA Active Immunizations Given and Recorded Vaccine Date Status Refusal Reason tetanus/diphtheria/pertussis, acel(Tdap) 1 02/07/18 Given Influenza Virus Vaccine (oldterm) 2 02/07/18 Given 1Result Comment: [02/07/2018] [facility] [id number] 2Admin Note: declined Medications risperiDONE 1 mg oral tablet 1 mg, 1, tablet, By Mouth, 2 times a day, # 60 tablet, Refills 0, Tot. Refills 0, Maintenance, 01/10/21 14:02:00 EDT, Route to Pharmacy Electronically, [facility]/pharmacy #[id number], Partial fill upon patient request if the prescription is for a schedule II opio... Start Date: 01/10/21 Stop Date: 02/09/21 Status: Ordered Problem List Condition Effective Dates Status Health Status Inform ant Adjustment disorder(Confirmed) Active ADHD(Confirmed) Active Depression(Confirmed) Active Marijuana use(Confirmed) Active Schizophrenia(Confirmed) Active Vital Signs Most recent to oldest [Reference Range]: 1 2 3 Height 171 cm (01/10/21 11:14 AM) 171 cm (01/10/21 5:30 AM) 171 cm (01/09/21 11:50 PM) Weight 60.5 kg (01/09/21 6:57 PM) 60.5 kg (01/09/21 5:27 PM) Oxygen Saturation [94-100 %] 98 % (01/10/21 11:14 AM) 100 % (01/10/21 5:30 AM) 98 % (01/09/21 11:50 PM) Pulse Rate [55-90 bpm] 84 bpm (01/10/21:14 AM) 102 bpm *H* (01/10/21 5:30 AM) 74 bpm (01/09/21 11:50 PM) Body Mass Index [18.5-24.99] 20.69 (01/09/21 6:57 PM) Blood Pressure [90-138/55-84 mm Hg] 112/63mm Hg (01/10/21 11:14 AM) 123/80mm Hg (01/10/21 5:30 AM) 137/70mm Hg (01/09/21 11:50 PM) Respiratory Rate [16-30 br/min] 18 br/min (01/10/21 11:14 AM) 18 br/min (01/10/21 5:30 AM) 18 br/min (01/09/21 11:50 PM) Temperature [96.8-100.4 DegF] 98.0 DegF (01/10/21 11:14 AM) 98.3 DegF (01/10/21 5:30 AM) 98.3 DegF (01/09/21 11:50 PM) Mode of Delivery (Oxygen) Room air (01/10/21 11:14 AM) Room air (01/10/21 5:30 AM) Room air (01/09/21 11:50 PM) Blood pressure sites Arm, right (01/10/21 11:14 AM) Arm, left (01/10/21 5:30 AM) Arm, right (01/09/21 11:50 PM) Temperature Route Oral (01/10/21 11:14 AM) Oral (01/10/21 5:30 AM) Oral (01/09/21 11:50 PM) Dry Weight 60.5 kg (01/09/21 6:57 PM) Weight Obtained Via Bed scale (01/09/21 5:27 PM) Social History Social History Type Response Smoking Status Former smoker; Tobac co user in household: Yes entered on: 01/06/18 Sex
== END 2024-05-23 01:34 | disposition left against medical advice (07) ==
PROVIDERS: Emergency Provider Emergency Medicine
DX: M25.511 Pain in right shoulder (principal)
CPT/HCPCS: 73030; 99281

== ENCOUNTER 2024-07-04 09:58 | Emergency (ER) | payer OTHER, SELFPAY ==
--- NOTE | ~2024-07-04 | CT_ITS ---
EXAMINATION: CT FACIAL BONES WITHOUT CONTRAST CLINICAL INFORMATION: Possible nasal fracture COMPARISON: None available. TECHNIQUE: A noncontrast CT of the facial bones was performed. This CT examination was performed using dose optimization techniques as appropriate, variously including the following: *Automated exposure control *Adjustment of mA and/or kV according to patient size (this includes techniques or standardized protocols for targeted exams where dose is matched to indication/reason for exam; i.e. extremities or head) *Use of iterative reconstruction technique DLP: 336 mGy-cm FINDINGS: No definite nasal bone fracture, or facial bone fracture elsewhere. Small areas of polypoid mucosal thickening in the medial right and medial left maxillary sinuses. The paranasal sinuses appear otherwise clear. The nasal septum is midline with a small right septal spur. The ostiomeatal units are patent. CT/CT facial bones wo IV con IMPRESSION: No facial bone fracture. Electronically signed by: Alonzo Burks MD 07/04/2024 03:35 PM EDT
[2024-07-04 10:28] VITALS: BP 118/76; PULSE 63; RESP 18; TEMP 36.6; O2SAT 100; BMI 24.1
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
== END 2024-07-04 14:00 | disposition left against medical advice (07) ==
LOC: HO.ED 13:38
PROVIDERS: Emergency Provider Emergency Medicine
DX: S09.92XA Unspecified injury of nose, initial encounter (principal); Y09 Assault by unspecified means; Y93.9 Activity, unspecified; Y92.89 Other specified places as the place of occurrence of the external cause; Y99.8 Other external cause status
CPT/HCPCS: 70486; 99281; 99284

== ENCOUNTER 2025-06-05 19:02 | Emergency (ER) | payer OTHER, SELFPAY ==
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
[2025-06-05 19:16] VITALS: BP 138/91; PULSE 84; O2SAT 100
[2025-06-05 19:19] VITALS: BP 145/91; PULSE 66; RESP 18; TEMP 36.7; O2SAT 99; BMI 22.7
--- OUTSIDE RECORDS SUMMARY | 2025-06-05 21:20 | XMS_ITS | Clinical Summary ---
Author Organization [facility] Address [address] [place] [phone] Phone Care Team Providers Care Accounts Receivable Clerk Name Role Phone Annita John MD Primary Care Pr ovider Allergies No known active allergies Social History Tobacco Use Types Packs/Day Years Used Date Smoking Tobacco: Never Assessed Sex and Gender Information Value Date Recorded Sex Assigned at Male 01/05/2025 1:32 PM EDT Legal Sex Male 5:47 AM EST Gender Identity Male 01/05/2025 1:32 PM EDT Sexual Orientation Straight 01/05/2025 1: 32 PM EDT Obstetrics History Last Filed Vital Signs Vital Sign Reading Time Taken Comments Blood Pressure 102/85 01/05/2025 12:33 PM EDT Pulse 60 01/05/2025 12:33 PM EDT Temperature 36.4 C (97.6 F) 01/05/2025 12:33 PM EDT Respiratory Rate 18 01/05/2025 12:33 PM EDT Oxygen Saturation 100% 01/05/2025 12:33 PM EDT Inhaled Oxygen Concentration - - Weight 67.1 kg (148 lb) 01/05/2025 12:33 PM EDT Height 167.6 cm (5' 6 ) 01/05/2025 12:33 PM EDT Body Mass Index 23.89 01/05/2025 12:33 PM EDT Plan of Treatment Health Maintenance Due Date Last Done Comments Hepatitis B Vaccines (1 of + 3-dose series) 2012 HIV Screening 07/04/2024 Hepatitis C Screening 07/04/2024 Social Influencers of Health Screening 07/04/2024 Depression Screening 09/27/2024 COVID-19 Vaccine (2024-2 6 season) 2025 12/19/2021, 04/03/2021 Influenza Vaccine (#1) 2025 02/07/2018 DTaP,Tdap,and Td Vaccines (3 - Td or Tdap) 02/08/2028 02/07/2018, 12/14/2012 HIB Vaccines Aged Out No longer eligi ble based on patient's age to complete this topic HPV Vaccines Aged Out No longer eligi ble based on patient's age to complete this topic Hepatitis A Vaccines Aged Out No long er eligible based on patient's age to complete this topic IPV Vaccines Aged Out No longer eligi ble based on patient's age to complete this topic MMR Vaccines Aged Out No longer eligi ble based on patient's age to complete this topic Meningococcal ACWY Vaccine Aged Out N o longer eligible based on patient's age to complete this topic Meningococcal B Vaccine Aged Out No l onger eligible based on patient's age to complete this topic Pneumococcal Vaccine: Pediatrics (0 to 5 Years) and At-Risk Patients (6 to 49 Years) Aged Out No longer eligible b ased on patient's age to complete this topic RSV Immunization Patients Under 20 months Aged Out No longer eligible b ased on patient's age to complete this topic Varicella Vaccines Aged Out No longer eligible based on patient's age to complete this topic Insurance [address] [place] [address] [employer] [address] [place] [address] Care Teams Accounts Receivable Clerk Relationship Specialty Start Date End Date Annita John MD [address] [place] [phone] [facility] - General 04/18/24
[2025-06-05 22:00] VITALS: BP 140/80; PULSE 66; RESP 18; TEMP 36.7; O2SAT 100
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
[2025-06-05 22:28] LABS: MANUAL DIFF FLAG NO
[2025-06-05 22:29] LABS: Appearance Urine Clear; Glucose Urine UA Negative (Negative); PH 6.0 (5.0-9.0); Specific Gravity - Urine >= 1.030 (1.005-1.025)
[2025-06-05 22:30] LABS: Hematocrit 41.5 % (42.0-52.0); Hemoglobin 13.5 g/dl (14.0-18.0); Imm Gran Abs Auto 0.02 X10*3/uL (0.00-0.03); Imm Gran Pct Auto 0.2 % (0.0-0.4); Lymphocytes Absolute Auto 1.3 X10*3/uL (1.2-4.9); Mean Corpuscular HGB Conc 32.5 g/dl (31.0-36.0); Mean Corpuscular Hemoglobin 25.9 pg (27.0-33.0); Mean Corpuscular Volume 79.5 fL (80.0-98.0); NRBC Abs Auto 0.000 X10*3/uL (0.0-0.012); NRBC Pct Auto 0.0 /100WBC (0.0-0.2); Platelet Count 203 X10*3/uL (160-400); Red Blood Count 5.22 X10*6/uL (4.60-5.80); White Blood Count 10.0 X10*3/uL (4.8-10.8)
[2025-06-05 22:37] LABS: Cannabinoid Screen Urine POSITIVE (Not Detect)
[2025-06-05 22:45] LABS: Anion Gap 12 (12-20); Blood Urea Nitrogen 20 mg/dL (9-16); Calcium 8.9 mg/dL (8.4-10.2); Carbon Dioxide 23 mmol/L (22-29); Chloride 111 mmol/L (96-108); Creatinine Clr Calc Pharmacy 89.4; Estimated Glomerular Filt Rate > 60; Potassium 3.5 mmol/L (3.3-5.1); Sodium 142 mmol/L (135-145)
--- NOTE | 2025-06-05 23:58 | PC.NURSE ---
report given to POD. pt calm and cooperative at this time. aware of plan to move to pod to speak with care team.
--- NOTE | 2025-06-06 00:30 | PC.NURSE ---
Patient transferred to room 1 in behavioral pod from ED 4 lee. Patient alert and oriented x4, denies SI/HI at present. Patient noted to be ambulating with a steady gait. Care team at bedside at this time performing evaluation.
[2025-06-06 01:10] VITALS: BP 126/82; PULSE 73; RESP 18; TEMP 36.7; O2SAT 100
== END 2025-06-06 01:11 | disposition home or self-care (01) ==
PROVIDERS: Emergency Provider Emergency Medicine Emergency Medical Services
DX: S13.4XXA Sprain of ligaments of cervical spine, initial encounter (principal); S00.93XA Contusion of unspecified part of head, initial encounter; R45.851 Suicidal ideations; R51.9 Headache, unspecified; M54.2 Cervicalgia; V49.9XXA Car occupant (driver) (passenger) injured in unspecified traffic accident, initial encounter; Y93.9 Activity, unspecified; Y92.410 Unspecified street and highway as the place of occurrence of the external cause; Y99.8 Other external cause status; Z87.891 Personal history of nicotine dependence; Z51.81 Encounter for therapeutic drug level monitoring; Z79.899 Other long term (current) drug therapy
CPT/HCPCS: 36415; 70450; 72125; 80048; 80307; 81001; 85025; 99284; S9485

== ENCOUNTER → 2025-06-05 21:55 | Outpatient (BNV) | payer OTHER, SELFPAY | PROVIDERS: Emergency Provider Emergency Medicine Emergency Medical Services; Visit Provider Radiology Diagnostic Radiology | DX: Z04.3 Encounter for examination and observation following other accident (principal); S09.90XA Unspecified injury of head, initial encounter | CPT/HCPCS: 70450; 72125 ==